=== PATIENT | female | born 1990 | race Caucasian/White ===

== ENCOUNTER 2016-11-02 06:17 | Emergency (ER) | payer MEDICAID, OTHER ==
[2016-11-02 06:25] VITALS: RESP 18
[2016-11-02] MEDS ORDERED: ONDANSETRON 4 MG/2 ML VIAL IVP STA (06:46)
[2016-11-02] MEDS ORDERED: FAMOTIDINE 20 MG/2 ML VIAL IV STA (06:46)
[2016-11-02] MEDS ORDERED: DICYCLOMINE 10 MG/ML 2 ML AMP IM STA (06:46)
[2016-11-02] MEDS ORDERED: SODIUM CHLORIDE 0.9% 1,000 ML IV STA (06:46)
--- NOTE | 2016-11-02 06:49 | ED ---
General Adult HPI - General Source: patient, RN notes reviewed Mode of arrival: ambulatory Limitations: no limitations <Marv Jenkins - Last Filed: 11/02/16 06:47> <Sarath Raygoza - Last Filed: 11/02/16 08:27> - General Chief complaint: Nausea/Vomiting/Diarrhea Stated complaint: NVD - History of Present Illness Initial comments: Patient is a pleasant 26-year-old female presenting to the emergency Department with complaints of nausea and vomiting and diarrhea. Onset of symptoms was . Seemed to have improving symptoms yesterday and then worsen again throughout the night. Patient has nausea. Patient has vomited multiple times. Patient also has had some diarrhea. Patient has some discomfort in the mid abdomen. No fever. Patient has other family members with similar symptoms. ( Marv Jenkins) - Related Data Previous Rx's Medication Instructions Recorded Ondansetron [Zofran] 4 mg PO Q8HR PRN #30 tab 11/02/16 Allergies Allergy/AdvReac Type Severity Reaction Status Date / Time No Known Allergies Allergy Verified 11/02/16 06:25 Review of Systems ROS Other: All systems not noted in ROS Statement are negative. Constitutional: Denies: fever, chills Eyes: Denies: eye pain ENT: Denies: ear pain Respiratory: Denies: cough Cardiovascular: Denies: chest pain Endocrine: Denies: fatigue Gastrointestinal: Reports: abdominal pain, nausea, vomiting, diarrhea Genitourinary: Denies: dysuria Musculoskeletal: Denies: back pain Skin: Denies: rash Neurological: Denies: weakness <Marv Jenkins - Last Filed: 11/02/16 06:47> ROS Other: All systems not noted in ROS Statement are negative. <Sarath Raygoza - Last Filed: 11/02/16 08:27> ROS Statement: Those systems with pertinent positive or pertinent negative responses have been documented in the HPI. Past Medical History Past Medical History: No Reported History History of Any Multi-Drug Resistant Organisms: None Reported Past Surgical History: Tubal Ligation Additional Past Surgical History / Comment(s): Patient had a D&C for a miscarriage. Past Anesthesia/Blood Transfusion Reactions: No Reported Reaction Past Psychological History: No Psychological Hx Reported Smoking Status: Former smoker Past Alcohol Use History: None Reported Past Drug Use History: None Reported - Past Family History Father History Unknown: Yes Family Medical History: No Reported History <Marv Jenkins - Last Filed: 11/02/16 06:47> General Exam Limitations: no limitations General appearance: alert, in no apparent distress Head exam: Present: atraumatic Eye exam: Present: normal appearance, PERRL ENT exam: Present: normal oropharynx Neck exam: Present: normal inspection Respiratory exam: Present: normal lung sounds bilaterally Cardiovascular Exam: Present: regular rate, normal rhythm GI/Abdominal exam: Present: soft, tenderness (Mild epigastric tenderness to palpation). Absent: distended Extremities exam: Present: normal inspection. Absent: pedal edema, calf tenderness Neurological exam: Present: alert Psychiatric exam: Present: normal affect, normal mood Skin exam: Absent: rash <Marv Jenkins Last Filed: 11/02/16 06:47> General appearance: alert, in no apparent distress Head exam: Present: atraumatic, normocephalic, normal inspection Eye exam: Present: normal appearance, PERRL, EOMI. Absent: scleral icterus, conjunctival injection, periorbital swelling ENT exam: Present: normal exam, mucous membranes moist Neck exam: Present: normal inspection. Absent: tenderness, meningismus, lymphadenopathy Respiratory exam: Present: normal lung sounds bilaterally. Absent: respiratory distress, wheezes, rales, rhonchi, stridor Cardiovascular Exam: Present: regular rate, normal rhythm, normal heart sounds. Absent: systolic murmur, diastolic murmur, rubs, gallop, clicks GI/Abdominal exam: Present: soft, normal bowel sounds. Absent: distended, tenderness, guarding, rebound, rigid Extremities exam: Present: normal inspection, full ROM, normal capillary refill. Absent: tenderness, pedal edema, joint swelling, calf tenderness Back exam: Present: normal inspection Neurological exam: Present: alert, oriented X3, CN II-XII intact Psychiatric exam: Present: normal affect, normal mood Skin exam: Present: warm, dry, intact, normal color. Absent: rash <Sarath Raygoza - Last Filed: 11/02/16 08:27> Course <Marv Jenkins - Last Filed: 11/02/16 06:47> <Sarath Raygoza - Last Filed: 11/02/16 08:27> Vital Signs 11/02/16 11/02/16 06:23 08:06 Temperature 96.9 F L Pulse Rate 83 80 Respiratory 18 18 Rate Blood Pressure 142/85 119/78 O2 Sat by Pulse 96 99 Oximetry - Reevaluation(s) Reevaluation #1: 11/02/16 08:26 Patient is feeling better at this time, denies nausea and vomiting while in emergency room, no diarrheal episodes while in emergency room, denies recent antibiotic use, no fever. (Sarath Raygoza) Medical Decision Making <Marv Jenkins - Last Filed: 11/02/16 06:47> - Lab Data Result diagrams: 11/02/16 07:00 11/02/16 07:00 - Radiology Data Radiology results: report reviewed (X-ray KUB is negative), image reviewed <Sarath Raygoza - Last Filed: 11/02/16 08:27> - Medical Decision Making 18 female year for nausea vomiting diarrhea, gastroenteritis, patient will be treated appropriately with IV fluids in the emergency room, is feeling better, patient will be given antiemetics for home okay for discharge (Sarath Raygoza) - Lab Data Lab Results 11/02/16 11/02/16 Range/Units 07:00 07:00 WBC 10.6 (3.8-10.6) k/uL RBC 5.07 (3.80-5.40) m/uL Hgb 14.7 (11.4-16.0) gm/dL Hct 43.6 (34.0-46.0) % MCV 86.0 (80.0-100.0) fL MCH 29.0 (25.0-35.0) pg MCHC 33.7 (31.0-37.0) g/dL RDW 12.7 (11.5-15.5) % Plt Count 229 (150-450) k/uL Neutrophils % 81 % Lymphocytes % 13 % Monocytes % 4 % Eosinophils % 1 % Basophils % 0 % Neutrophils # 8.6 H (1.3-7.7) k/uL Lymphocytes # 1.3 (1.0-4.8) k/uL Monocytes # 0.4 (0-1.0) k/uL Eosinophils # 0.1 (0-0.7) k/uL Basophils # 0.0 (0-0.2) k/uL Sodium 142 (137-145) mmol/L Potassium 3.6 (3.5-5.1) mmol/L Chloride 105 (98-107) mmol/L Carbon Dioxide 21 L (22-30) mmol/L Anion Gap 16 mmol/L BUN 13 (7-17) mg/dL Creatinine 0.52 (0.52-1.04) mg/dL Est GFR (MDRD) Af Amer >60 (>60 ml/min/1.73 sqM) Est GFR (MDRD) Non-Af >60 (>60 ml/min/1.73 sqM) Glucose 92 (74-99) mg/dL Calcium 9.0 (8.4-10.2) mg/dL Total Bilirubin 1.0 (0.2-1.3) mg/dL AST 17 (14-36) U/L ALT 30 (9-52) U/L Alkaline Phosphatase 59 (38-126) U/L Total Protein 7.3 (6.3-8.2) g/dL Albumin 4.3 (3.5-5.0) g/dL Amylase <30 L (30-110) U/L Lipase 35 (23-300) U/L Disposition <Marv Jenkins - Last Filed: 11/02/16 06:47> <Sarath Raygoza - Last Filed: 11/02/16 08:27> Clinical Impression: Dehydration, Gastroenteritis Disposition: HOME SELF-CARE Condition: Good Instructions: Acute Nausea and Vomiting (ED), Acute Diarrhea (ED) Prescriptions: Ondansetron [Zofran] 4 mg PO Q8HR PRN #30 tab PRN Reason: Nausea Referrals: Shirlene Sam, PAC [Primary Care Provider] - 1-2 days
[2016-11-02 07:24] LABS: Basophils % (A) 0 %; Eosinophils # (A) 0.1 k/uL (0-0.7); Eosinophils % (A) 1 %; HCT 43.6 % (34.0-46.0); HGB 14.7 gm/dL (11.4-16.0); Luc # (Auto) 0.16; Luc % (Auto) 2; Lymphocytes # (A) 1.3 k/uL (1.0-4.8); Lymphocytes % (A) 13 %; MCHC 33.7 g/dL (31.0-37.0); Monocytes # (A) 0.4 k/uL (0-1.0); Monocytes % (A) 4 %; Neutrophils # (A) 8.6 k/uL (1.3-7.7); Neutrophils % (A) 81 %; RBC 5.07 m/uL (3.80-5.40); RDW 12.7 % (11.5-15.5); WBC 10.6 k/uL (3.8-10.6); WBC (Perox) 10.79
[2016-11-02 07:36] LABS: ALT 30 U/L (9-52); AST 17 U/L (14-36); Alkaline Phosphatase 59 U/L (38-126); Amylase <30 U/L (30-110); Anion Gap 16 mmol/L; Blood Urea Nitrogen 13 mg/dL (7-17); Carbon Dioxide 21 mmol/L (22-30); Chloride 105 mmol/L (98-107); Glucose 92 mg/dL (74-99); Non-African American GFR(MDRD) >60 (>60 ml/min/1.73 sqM); Potassium 3.6 mmol/L (3.5-5.1); Sodium 142 mmol/L (137-145); Total Protein 7.3 g/dL (6.3-8.2)
[2016-11-02 08:07] VITALS: BP 119/78; PULSE 80
--- NOTE | 2016-11-02 08:20 | XR ---
Abdomen HISTORY: Nausea and vomiting Frontal view of the abdomen on 2 images There are air-fluid levels without bowel dilation. No pneumoperitoneum. Lung bases are clear. IMPRESSION: Findings suggest enteritis. Follow-up as indicated.
[2016-11-02 08:48] VITALS: TEMP 97.5
== END 2016-11-02 08:58 | disposition home or self-care (01) ==
LOC: EC 06:17
DX: K52.9 Noninfective gastroenteritis and colitis, unspecified (principal); E86.0 Dehydration; Z87.891 Personal history of nicotine dependence
CPT/HCPCS: 36415; 80053; 82150; 83690; 85025; 74000; 99284; 96374; 96375; 96361; 96372; J0500; J2405

== ENCOUNTER → 2021-09-24 | Outpatient (CLI) | payer BC, MEDICAID ==
--- NOTE | 2021-09-24 16:17 | US ---
EXAMINATION TYPE: US pelvic complete DATE OF EXAM: 09/24/2021 COMPARISON: NONE CLINICAL HISTORY: N92.1 Excessive menstruation. Clots TECHNIQUE: Transvaginal (TV) and Transabdominal (TA) . Transabdominal sonographic images of the pel vis were acquired. Transvaginal sonographic images were medically necessary to better assess the fol lowing anatomy: Date of LMP: 09/22/21 EXAM MEASUREMENTS: Uterus: 8.7 x 5.7 x 4.7 cm Endometrial Stripe: 0.4 cm Right Ovary: 2.9 x 2.7 x 2.5 cm Left Ovary: 3.2 x 2.6 x 2.2 cm 1. Uterus: Anteverted with multiple leiomyomas 2. Endometrium: wnl 3. Right Ovary: with multiple follicles 4. Left Ovary: with multiple follicles Spectral, color and waveform doppler imaging shows good arterial and venous flow within the ovaries ; . 5. Bilateral Adnexa: wnl 6. Posterior cul-de-sac: wnl Heterogeneous anteverted uterus. There is 1.6 cm slightly hypoechoic round intramural fibroid posteri sorin and transvaginal investigation. A few tiny nabothian cysts are present. Additional heterogeneous scattered fibroids. Present during real-time scanning per technologist. Both ovaries seen and are symmetric and normal in size. Scattered peripheral follicles bilaterally. N o suspicious adnexal masses. IMPRESSION: Underlying uterine fibroids are felt present. Pelvic MRI study could be performed to bett er evaluate and characterize if desired.
== END | disposition home or self-care (01) ==
LOC: RADUSWWP 15:38
PROVIDERS: ATTEND Family Medicine
DX: D25.1 Intramural leiomyoma of uterus (principal)
CPT/HCPCS: 76830; 76856

== ENCOUNTER → 2022-08-01 | Outpatient (CLI) | payer BC ==
[2022-08-01 15:32] LABS: Follicle Stimulating Hormone 3.7 mIU/mL
== END | disposition home or self-care (01) ==
LOC: LABWHC1 09:38
PROVIDERS: ATTEND Obstetrics & Gynecology Gynecology
DX: D25.9 Leiomyoma of uterus, unspecified (principal)
CPT/HCPCS: 36415; 83001; 84443

== ENCOUNTER 2023-05-25 18:53 | Inpatient (IN) | payer BC, OTHER ==
[2023-05-25 19:04] VITALS: TEMP 97.7
[2023-05-25 19:05] LABS: Glucose,Whole Blood 88 mg/dL (70-110)
[2023-05-25] MEDS ORDERED: SODIUM CHLORIDE 0.9% 1,000 ML IV STA (19:14)
[2023-05-25] MEDS ORDERED: ONDANSETRON 4 MG/2 ML VIAL IVP STA (19:17)
--- NOTE | 2023-05-25 19:23 | ED ---
General Adult HPI - General Chief complaint: Eye Problems Stated complaint: HTN/vision loss Time Seen by Provider: 05/25/23 19:08 Source: patient, RN notes reviewed, old records reviewed Mode of arrival: ambulatory Limitations: altered mental status - History of Present Illness Initial comments: 32-year-old female presenting for evaluation. She was sent from urgent care where she was being evaluated for vision disturbance. She states she's had blurry vision. She does report headache she reported left arm weakness. History is very difficult and the patient is quite repetitive. I did ask on multiple occasions with duration of her symptoms and it seems as though these rate the symptoms have been present for the past one to 2 days. She reports a headache. Multiple episodes of vomiting. She states she has been working a lot. She states that her arm weakness has been present for at least 24 hours. She states the visual disturbance is been present for the past 2 days and she's had intermittent headaches over this time. She reports previous hysterectomy and denies current . - Related Data Home Medications Medication Instructions Recorded Confirmed No Known Home Medications 05/25/23 05/25/23 Allergies Allergy/AdvReac Type Severity Reaction Status Date / Time No Known Allergies Allergy Verified 05/25/23 19:15 Review of Systems ROS Statement: Those systems with pertinent positive or pertinent negative responses have been documented in the HPI. ROS Other: All systems not noted in ROS Statement are negative. Past Medical History Past Medical History: No Reported History History of Any Multi-Drug Resistant Organisms: None Reported Past Surgical History: Tubal Ligation Additional Past Surgical History / Comment(s): Patient had a D&C for a miscarriage. Past Anesthesia/Blood Transfusion Reactions: No Reported Reaction Past Psychological History: No Psychological Hx Reported Past Alcohol Use History: None Reported Past Drug Use History: None Reported - Past Family History Father History Unknown: Yes Family Medical History: No Reported History General Exam Limitations: no limitations General appearance: alert Head exam: Present: atraumatic, normocephalic Eye exam: Present: normal appearance, PERRL. Absent: nystagmus ENT exam: Present: mucous membranes dry Respiratory exam: Present: normal lung sounds bilaterally. Absent: respiratory distress, wheezes Cardiovascular Exam: Present: regular rate, normal rhythm GI/Abdominal exam: Present: soft. Absent: distended Extremities exam: Present: normal inspection, normal capillary refill. Absent: pedal edema, calf tenderness Neurological exam: Present: alert, motor sensory deficit (Left arm drift). Absent: oriented X3 (Patient is repetitive, difficult to redirect) Psychiatric exam: Present: anxious Course Vital Signs 05/25/23 05/25/23 18:58 20:53 Temperature 97.7 F Pulse Rate 80 64 Respiratory 22 16 Rate Blood Pressure 177/110 138/94 O2 Sat by Pulse 100 100 Oximetry Medical Decision Making - Medical Decision Making Was pt. sent in by a medical professional or institution (, PA, PAPER COLORER, urgent care, hospital, or senior living...) When possible be specific @ -No Did you speak to anyone other than the patient for history (EMS, parent, family, police, friend...)? What history was obtained from this source @ -No Did you review nursing and triage notes (agree or disagree)? Why? @ -I reviewed and agree with nursing and triage notes Were old charts reviewed (outside hosp., previous admission, EMS record, old EKG, old radiological studies, urgent care reports/EKG's, senior living records)? Report findings @ -No old charts were reviewed Differential Diagnosis (chest pain, altered mental status, abdominal pain women, abdominal pain men, vaginal bleeding, weakness, fever, dyspnea, syncope, headache, dizziness, GI bleed, back pain, seizure, CVA, palpatations, mental health, musculoskeletal)? @ Differential CVA Ischemic stroke, hemorrhagic stroke, brain tumor, atypical migraine, Wernicke's encephalopathy, seizure, multiple sclerosis, meningitis, encephalitis, hypoglycemia, Guillain-Trinh, electrolytes disturbance, myasthenia gravis.... This is not meant to be an all-inclusive list EKG interpreted by me (3pts min.). @ EKG: Sinus rhythm rate of 84, CT interval 125, QRS duration 98, QTC 423, no ST segment elevation. X-rays interpreted by me (1pt min.). @ Chest x-ray unremarkable CT interpreted by me (1pt min.). @ -CT brain, negative for intracranial hemorrhage or mass effect, CT angiog jessica negative for acute occlusion or stenosis U/S interpreted by me (1pt. min.). @ -None done What testing was considered but not performed or refused? (CT, X-rays, U/S, labs)? Why? @ -None What meds were considered but not given or refused? Why? @ -None Did you discuss the management of the patient with other professionals (professionals i.e. , PA, PAPER COLORER, lab, RT, psych nurse, hospice social worker, road machine operator, teacher, chief green officer, manager rn case)? Give summary @ -Roxana CHRISTIANSON Was smoking cessation discussed for >3mins.? @ -No Was critical care preformed (if so, how long)? @ -No Were there social determinants of health that impacted care today? How? (Carmine elessness, low income, unemployed, alcoholism, drug addiction, transportation, low edu. Level, literacy, decrease access to med. care, halfway, rehab)? @ -No Was there de-escalation of care discussed even if they declined (Discuss DNR or withdrawal of care, Hospice)? DNR status @ -No What co-morbidities impacted this encounter? (DM, HTN, Smoking, COPD, CAD, Cancer, CVA, ARF, Chemo, Hep., AIDS, mental health diagnosis, sleep apnea, morbid obesity)? @ -None Was patient admitted / discharged? Hospital course, mention meds given and route, prescriptions, significant lab abnormalities, going to OR and other pertinent info. @ -[32-year-old female presents for evaluation of confusion, headache, vision changes, left arm weakness. History is limited in this patient she is repetitive in nature. She is initially hypertensive at 177/110. She states her symptoms have been ongoing for the past 2 days. She does have a left arm drift. No facial asymmetry, speech is clear. NIH is 1. Patient has a difficult time providing a clear history but according to her and her symptoms have been going on for the past 2-1/[address] is negative, CT angiography is negative, chest x-ray is clear. She has normal CBC, normal CMP. Her blood pressure improves without antihypertensive medications. She's given IV fluids and Zofran and does have some improvement while in the emergency department and her nausea. She will be admitted for neurology consult. Undiagnosed new problem with uncertain prognosis? @ -No Drug Therapy requiring intensive monitoring for toxicity (Heparin, Nitro, Insulin, Cardizem)? @ -No Were any procedures done? @ -No Diagnosis/symptom? @ Confusion, CVA Acute, or Chronic, or Acute on Chronic? @ -Acute Uncomplicated (without systemic symptoms) or Complicated (systemic symptoms)? @ -default Side effects of treatment? @ -No Exacerbation, Progression, or Severe Exacerbation? @ -No Poses a threat to life or bodily function? How? (Chest pain, [place], VA, pneumonia, PE, COPD, DKA, ARF, appy, cholecystitis, CVA, Diverticulitis, Homicidal, Suicidal, threat to staff... and all critical care pts) @ -[Yes, CVA, confusion - Lab Data Result diagrams: 05/25/23 19:35 05/25/23 19:35 Lab Results 05/25/23 05/25/23 05/25/23 Range/Units 19:03 19:35 19:35 WBC 9.3 (3.8-10.6) k/uL RBC 4.91 (3.80-5.40) m/uL Hgb 14.5 (11.4-16.0) gm/dL Hct 43.9 (34.0-46.0) % MCV 89.4 (80.0-100.0) fL MCH 29.5 (25.0-35.0) pg MCHC 33.1 (31.0-37.0) g/dL RDW 12.5 (11.5-15.5) % Plt Count 229 (150-450) k/uL MPV 9.2 Neutrophils % 56 % Lymphocytes % 37 % Monocytes % 4 % Eosinophils % 1 % Basophils % 1 % Neutrophils # 5.2 (1.3-7.7) k/uL Lymphocytes # 3.5 (1.0-4.8) k/uL Monocytes # 0.4 (0-1.0) k/uL Eosinophils # 0.1 (0-0.7) k/uL Basophils # 0.1 (0-0.2) k/uL PT 10.6 (9.0-12.0) sec INR 1.0 (<1.2) APTT 25.2 (22.0-30.0) sec Sodium (137-145) mmol/L Potassium (3.5-5.1) mmol/L Chloride (98-107) mmol/L Carbon Dioxide (22-30) mmol/L Anion Gap mmol/L BUN (7-17) mg/dL Creatinine (0.52-1.04) mg/dL Est GFR (CKD-EPI)AfAm (>60 ml/min/1.73 sqM) Est GFR (CKD-EPI)NonAf (>60 ml/min/1.73 sqM) Glucose (74-99) mg/dL POC Glucose (mg/dL) 88 (70-110) mg/dL POC Glu Pan Washer ID Mariela Carrion Calcium (8.4-10.2) mg/dL Total Bilirubin (0.2-1.3) mg/dL AST (14-36) U/L ALT (4-34) U/L Alkaline Phosphatase (38-126) U/L Creatine Kinase (30-135) U/L Troponin I (0.000-0.034) ng/mL Total Protein (6.3-8.2) g/dL Albumin (3.5-5.0) g/dL Urine Color Urine Appearance (Clear) Urine pH (5.0-8.0) Ur Specific [place] (1.001-1.035) Urine Protein (Negative) Urine Glucose (UA) (Negative) Urine Ketones (Negative) Urine Blood (Negative) Urine Nitrite (Negative) Urine Bilirubin (Negative) Urine Urobilinogen (<2.0) mg/dL Ur Leukocyte Esterase (Negative) Serum Alcohol mg/dL 05/25/23 05/25/23 05/25/23 Range/Units 19:35 19:35 19:35 WBC (3.8-10.6) k/uL RBC (3.80-5.40) m/uL Hgb (11.4-16.0) gm/dL Hct (34.0-46.0) % MCV (80.0-100.0) fL MCH (25.0-35.0) pg MCHC (31.0-37.0) g/dL RDW (11.5-15.5) % Plt Count (150-450) k/uL MPV Neutrophils % % Lymphocytes % % Monocytes % % Eosinophils % % Basophils % % Neutrophils # (1.3-7.7) k/uL Lymphocytes # (1.0-4.8) k/uL Monocytes # (0-1.0) k/uL Eosinophils # (0-0.7) k/uL Basophils # (0-0.2) k/uL PT (9.0-12.0) sec INR (<1.2) APTT (22.0-30.0) sec Sodium 137 (137-145) mmol/L Potassium 3.6 (3.5-5.1) mmol/L Chloride 103 (98-107) mmol/L Carbon Dioxide 25 (22-30) mmol/L Anion Gap 9 mmol/L BUN 12 (7-17) mg/dL Creatinine 0.54 (0.52-1.04) mg/dL Est GFR (CKD-EPI)AfAm >90 (>60 ml/min/1.73 sqM) Est GFR (CKD-EPI)NonAf >90 (>60 ml/min/1.73 sqM) Glucose 84 (74-99) mg/dL POC Glucose (mg/dL) (70-110) mg/dL POC Glu Pan Washer ID Calcium 9.7 (8.4-10.2) mg/dL Total Bilirubin 0.8 (0.2-1.3) mg/dL AST 24 (14-36) U/L ALT 17 (4-34) U/L Alkaline Phosphatase 76 (38-126) U/L Creatine Kinase 66 (30-135) U/L Troponin I <0.012 (0.000-0.034) ng/mL Total Protein 7.9 (6.3-8.2) g/dL Albumin 4.9 (3.5-5.0) g/dL Urine Color Colorless Urine Appearance Clear (Clear) Urine pH 7.0 (5.0-8.0) Ur Specific [place] 1.003 (1.001-1.035) Urine Protein Negative (Negative) Urine Glucose (UA) Negative (Negative) Urine Ketones Negative (Negative) Urine Blood Negative (Negative) Urine Nitrite Negative (Negative) Urine Bilirubin Negative (Negative) Urine Urobilinogen <2.0 (<2.0) mg/dL Ur Leukocyte Esterase Negative (Negative) Serum Alcohol <10 mg/dL 05/25/23 Range/Units 19:36 WBC (3.8-10.6) k/uL RBC (3.80-5.40) m/uL Hgb (11.4-16.0) gm/dL Hct (34.0-46.0) % MCV (80.0-100.0) fL MCH (25.0-35.0) pg MCHC (31.0-37.0) g/dL RDW (11.5-15.5) % Plt Count (150-450) k/uL MPV Neutrophils % % Lymphocytes % % Monocytes % % Eosinophils % % Basophils % % Neutrophils # (1.3-7.7) k/uL Lymphocytes # (1.0-4.8) k/uL Monocytes # (0-1.0) k/uL Eosinophils # (0-0.7) k/uL Basophils # (0-0.2) k/uL PT (9.0-12.0) sec INR (<1.2) APTT (22.0-30.0) sec Sodium (137-145) mmol/L Potassium (3.5-5.1) mmol/L Chloride (98-107) mmol/L Carbon Dioxide (22-30) mmol/L Anion Gap mmol/L BUN (7-17) mg/dL Creatinine (0.52-1.04) mg/dL Est GFR (CKD-EPI)AfAm (>60 ml/min/1.73 sqM) Est GFR (CKD-EPI)NonAf (>60 ml/min/1.73 sqM) Glucose (74-99) mg/dL POC Glucose (mg/dL) 85 (70-110) mg/dL POC Glu Pan Washer ID Tae Lugo Calcium (8.4-10.2) mg/dL Total Bilirubin (0.2-1.3) mg/dL AST (14-36) U/L ALT (4-34) U/L Alkaline Phosphatase (38-126) U/L Creatine Kinase (30-135) U/L Troponin I (0.000-0.034) ng/mL Total Protein (6.3-8.2) g/dL Albumin (3.5-5.0) g/dL Urine Color Urine Appearance (Clear) Urine pH (5.0-8.0) Ur Specific [place] (1.001-1.035) Urine Protein (Negative) Urine Glucose (UA) (Negative) Urine Ketones (Negative) Urine Blood (Negative) Urine Nitrite (Negative) Urine Bilirubin (Negative) Urine Urobilinogen (<2.0) mg/dL Ur Leukocyte Esterase (Negative) Serum Alcohol mg/dL Disposition Clinical Impression: AMS (altered mental status), CVA (cerebral vascular accident) Disposition: ADMITTED IP TO THIS HOSP Condition: Stable Is patient prescribed a controlled substance at d/c from ED?: No Referrals: Aram Almanzar DO [Primary Care Provider] - 1-2 days Time of Disposition: 21:11
[2023-05-25 19:38] LABS: Glucose,Whole Blood 85 mg/dL (70-110)
[2023-05-25 20:09] LABS: Basophils # (A) 0.1 k/uL (0-0.2); Basophils % (A) 1 %; Eosinophils # (A) 0.1 k/uL (0-0.7); Eosinophils % (A) 1 %; HCT 43.9 % (34.0-46.0); HGB 14.5 gm/dL (11.4-16.0); Lymphocytes # (A) 3.5 k/uL (1.0-4.8); Lymphocytes % (A) 37 %; MCH 29.5 pg (25.0-35.0); MCHC 33.1 g/dL (31.0-37.0); MCV 89.4 fL (80.0-100.0); Mean Platelet Volume 9.2; Monocytes # (A) 0.4 k/uL (0-1.0); Monocytes % (A) 4 %; Neutrophils # (A) 5.2 k/uL (1.3-7.7); Neutrophils % (A) 56 %; Platelet Count 229 k/uL (150-450); RBC 4.91 m/uL (3.80-5.40); RDW 12.5 % (11.5-15.5); WBC 9.3 k/uL (3.8-10.6)
--- NOTE | 2023-05-25 20:21 | CT ---
EXAMINATION TYPE: CT brain wo con DATE OF EXAM: 05/25/2023 COMPARISON: None HISTORY: 32-year-old female Neuro deficit, acute, stroke suspected TECHNIQUE: Examination was done in axial plane without intravenous contrast. Coronal and sagittal r econstructions performed. CT DLP: 1116.6 mGycm Automated exposure control for dose reduction was used. FINDINGS: There is no evidence of acute intracranial hemorrhage, acute ischemic changes, mass, mass-effect, or extra-axial fluid collection. There is no effacement of cerebral sulci or basal subarachnoid cister ns. There is no hydrocephalus. There is no midline shift. Steiner-white matter distinction is preserv ed. Partially empty sella incidentally noted. Paranasal sinuses and mastoid air cells are well pneumatized. Orbits and globes are intact. IMPRESSION: No acute intracranial abnormality seen.
[2023-05-25 20:27] LABS: ALT 17 U/L (4-34); AST 24 U/L (14-36); African American GFR (CKD) >90 (>60 ml/min/1.73 sqM); Albumin 4.9 g/dL (3.5-5.0); Alcohol <10 mg/dL; Alkaline Phosphatase 76 U/L (38-126); Anion Gap 9 mmol/L; Blood Urea Nitrogen 12 mg/dL (7-17); Calcium 9.7 mg/dL (8.4-10.2); Carbon Dioxide 25 mmol/L (22-30); Chloride 103 mmol/L (98-107); Creatine Kinase 66 U/L (30-135); Glucose 84 mg/dL (74-99); Non-African American GFR(CKD) >90 (>60 ml/min/1.73 sqM); Potassium 3.6 mmol/L (3.5-5.1); Sodium 137 mmol/L (137-145); Total Bilirubin 0.8 mg/dL (0.2-1.3); Total Protein 7.9 g/dL (6.3-8.2)
--- NOTE | 2023-05-25 20:28 | CT ---
EXAMINATION TYPE: CT angio head neck DATE OF EXAM: 05/25/2023 COMPARISON: CT brain same date HISTORY: 32-year-old female Neuro deficit, acute, stroke suspected TECHNIQUE: Contiguous axial scanning of the head and neck performed with IV Contrast, patient injecte d with 65ml mL of Isovue 370. Coronal/sagittal MIP reconstructions performed. 3-D reconstructions gen erated on a dedicated workstation. CT DLP: 391.5 mGycm Automated exposure control for dose reduction was used. FINDINGS: Neck: Conventional branching anatomy. The left vertebral artery is dominant. Both vertebral arteries are otherwise patent throughout their course. Thyroid gland shows an 8 mm nodule in the right lobe. The right common and right internal carotid arteries are widely patent by NASCET criteria. The left common and left internal carotid arteries are widely patent by NASCET criteria. Head: Again, dominant left vertebral artery. The right vertebral artery appears to terminate as a PICA bran ch. The basilar artery is patent. A small posterior communicating artery on the left is noted. Otherwise, the posterior circulation is patent. Dural venous sinuses are patent. The bilateral internal carotid arteries are patent. Suspect a small 2 mm infundibulum at the origin of the left posterior communicating artery, thin cut axial image 169. Otherwise, anterior circulation is patent. IMPRESSION: 1. NECK: DOMINANT LEFT VERTEBRAL ARTERY. OTHERWISE, WIDELY PATENT VERTEBRAL AND CAROTID ARTERIES IN T HE NECK. 2. HEAD: ANATOMIC VARIATION WITH THE NONDOMINANT RIGHT VERTEBRAL ARTERY TERMINATING A PICA BRANCH. NO LARGE VESSEL INTRACRANIAL ARTERIAL OCCLUSION OR SIGNIFICANT STENOSIS. SUSPECT A TINY 2 MM INFUNDI BULUM AT THE ORIGIN OF THE LEFT POSTERIOR COMMUNICATING ARTERY RATHER THAN A TINY ANEURYSM. CONSIDER A 12 MONTH FOLLOW-UP [facility] [place] TO REASSESS.
--- NOTE | 2023-05-25 20:30 | XR ---
EXAMINATION TYPE: XR chest 2V DATE OF EXAM: 05/25/2023 COMPARISON: None HISTORY: 32-year-old female confusion, altered mental status, blurred vision TECHNIQUE: PA and lateral views FINDINGS: The cardiomediastinal silhouette, aorta, and pulmonary vasculature are within normal limits. Lungs an d pleural spaces are clear. IMPRESSION: No acute cardiopulmonary process.
[2023-05-25] MEDS ORDERED: ASPIRIN 325 MG TAB PO STA (20:52)
[2023-05-25 21:00] LABS: Appearance,Urine Clear (Clear); Bilirubin,Urine Negative (Negative); Blood,Urine Negative (Negative); Color,Urine Colorless; Glucose,Urine (UA) Negative (Negative); Ketones,Urine Negative (Negative); Leukocyte Esterase,Urine Negative (Negative); Nitrite,Urine Negative (Negative); Protein,Urine Negative (Negative); Specific Gravity,Urine 1.003 (1.001-1.035); Urobilinogen,Urine <2.0 mg/dL (<2.0)
[2023-05-25 21:05] LABS: Partial Thromboplastin Time 25.2 sec (22.0-30.0); Prothrombin Time 10.6 sec (9.0-12.0)
[2023-05-25 21:10] LABS: Amphetamine Screen,Urine Not Detected (NotDetected); Barbiturate Screen,Urine Not Detected (NotDetected); Benzodiazepines Screen,Urine Not Detected (NotDetected); Cocaine Screen,Urine Not Detected (NotDetected); Methadone Screen, Urine Not Detected (NotDetected); Opiate Screen,Urine Not Detected (NotDetected); Oxycodone Screen, Urine Not Detected (NotDetected); Phencyclidine Screen,Urine Not Detected (NotDetected); Tricyclic Antidepressant,Urine Not Detected (NotDetected); Urn Cannabinoid Scrn Not Detected (NotDetected)
[2023-05-25] MEDS: SODIUM CHLORIDE 0.9% 1,000 ML IV SCH (21:59)
[2023-05-26] MEDS ORDERED: ASPIRIN 325 MG TAB PO SCH (09:00)
[2023-05-26 09:27] LABS: Chol/HDL Ratio 4.35 Ratio; LDL Cholesterol,Calculated 126.6 mg/dL (0.0-131.0)
[2023-05-26] MEDS: SODIUM CHLORIDE 0.9% 1,000 ML IV SCH ×2 (09:57→20:37)
--- NOTE | 2023-05-26 12:14 | P.HPIM ---
History of Present Illness Patient is a 82-year-old female came in the with a transient loss of vision, P she also had a transient left-sided weakness and was bit confused as well she had episodes of nausea vomiting and headache. Patient denied any history of migraine. Patient denied any fever chills. Patient denied any fever patient had hysterectomy in the past. Patient says she is hypotensive but not taking any other blood blood pressure medication her blood pressure is within normal limits. Patient doesn't have any blurry vision or arm weakness at this time. Patient denied any history of glaucoma REVIEW OF SYSTEMS: CONSTITUTIONAL: No fever, no malaise, no fatigue. HEENT: No recent visual problems or hearing problems. Denied any sore throat. CARDIOVASCULAR: No chest pain, orthopnea, PND, no palpitations, no syncope. PULMONARY: No shortness of breath, no cough, no hemoptysis. GASTROINTESTINAL: No diarrhea, no nausea, no vomiting, no abdominal pain. NEUROLOGICAL: No headaches, no weakness, no numbness. HEMATOLOGICAL: Denies any bleeding or petechiae. GENITOURINARY: Denies any burning micturition, frequency, or urgency. MUSCULOSKELETAL/RHEUMATOLOGICAL: Denies any joint pain, swelling, or any muscle pain. ENDOCRINE: Denies any polyuria or polydipsia. The rest of the 14-point review of systems is negative. PHYSICAL EXAMINATION: GENERAL: The patient is alert and oriented x3, not in any acute distress. Well developed, well nourished. HEENT: Pupils are round and equally reacting to light. EOMI. No scleral icterus. No conjunctival pallor. Normocephalic, atraumatic. No pharyngeal erythema. No thyromegaly. CARDIOVASCULAR: S1 and S2 present. No murmurs, rubs, or gallops. PULMONARY: Chest is clear to auscultation, no wheezing or crackles. ABDOMEN: Soft, nontender, nondistended, normoactive bowel sounds. No palpable organomegaly. MUSCULOSKELETAL: No joint swelling or deformity. EXTREMITIES: No cyanosis, clubbing, or pedal edema. NEUROLOGICAL: Gross neurological examination did not reveal any focal deficits. SKIN: No rashes. Assessment and plan -Blurry vision, weakness in the left arm: All the workup is so far negative including CT CT angios the head and neck, patient the will undergo MRI and MRA to rule out any sinus venous thrombosis. Patient most probably has completed migraine neurology is recommending Depakote 50 twice a day and after the workup patient will be probably discharged -Nicotine use: Counseling was provided -Anxiety disorder Patient most probably will be discharged later today Past Medical History Past Medical History: No Reported History History of Any Multi-Drug Resistant Organisms: None Reported Past Surgical History: Tubal Ligation Additional Past Surgical History / Comment(s): Patient had a D&C for a miscarriage. Past Anesthesia/Blood Transfusion Reactions: No Reported Reaction Past Psychological History: No Psychological Hx Reported Past Alcohol Use History: None Reported Past Drug Use History: None Reported - Past Family History Father History Unknown: Yes Family Medical History: No Reported History Medications and Allergies Home Medications Medication Instructions Recorded Confirmed Type Topiramate [Topamax] 50 mg PO BID #60 tablet 05/26/23 Rx Allergies Allergy/AdvReac Type Severity Reaction Status Date / Time No Known Allergies Allergy Verified 05/25/23 19:15 Physical Exam Vitals: Vital Signs Temp Pulse Pulse Resp BP BP Pulse Ox 05/26/23 10:05 70 22 128/96 97 05/26/23 06:38 58 L 16 104/71 96 05/26/23 02:28 62 16 112/78 96 05/26/23 01:35 70 16 140/116 97 05/26/23 00:23 65 148/106 97 05/25/23 22:27 66 16 149/117 98 05/25/23 20:53 64 16 138/94 100 05/25/23 19:10 75 16 155/96 100 05/25/23 18:58 97.7 F 80 22 177/110 100 Intake and Output 05/25/23 05/26/23 05/26/23 22:59 06:59 14:59 Other: Weight 55.338 kg Results CBC & Chem 7: 05/25/23 19:35 05/25/23 19:35
[2023-05-26] MEDS ORDERED: BUTALB/APAP/CAFF 50-325-40MG TAB PO STA (12:22)
--- NOTE | 2023-05-26 12:22 | P.CNNES ---
History of Present Illness Consult date: 05/26/23 Requesting physician: Paras Solomon Reason for Consult: ams/cva History of Present Illness: This is a 32-year-old woman who presented emergency department for visual disturbance. Patient is accompanied with her . Over the patient since Thursday she has been feeling off and that she was told that she was spacey since this past Thursday. Then the next day she's noticed that she's having headache mostly in the frontal anterior temporal region and she feels that the throbbing pulsating headache. She rates the headache 7/10. And she feels the headaches waxes and wanes but denies any complete resolution. She denies any radiation. She's been having visual disturbance since Thursday or Thursday as well. She feels her eyes are blurry and been having these black white sparkles over both eyes. She feels that'll speckles are moving across her eyes. As well as recently she's been having vomiting episodes. Denies any focal weakness or numbness or any difficulty swallowing or getting her words out. She denies any history of seizures. Denies any history of migraines at. Denies any history of stroke. That she has history of hysterectomy and she is not on any control pills. She denies any illicit drug use. She denies any head trauma recently. Her mother has history of migraines. Some other workup during his hospital visit consisted of: So far her CBC with differential, chemistry panel, urinalysis, urine drug screen all have been coming back negative. Even that she's afebrile but has been having some elevated blood pressure initially in the 177/110. CT of the head is reported as no acute intracranial abnormality seen. CTA neck was reported as dominant left vertebral artery. Otherwise widely patent vertebral and carotid arteries in the neck. CTA head reported as atomic variation with the nondominant right vertebral artery at termination as a PICA branch. No large vessel intracranial arterial occlusion or significant stenosis. suspected a tiny 2 mm infundibulum at the or igin of the left posterior communicating artery rather than a tiny aneurysm. Consider twelve-month follow-up MRA ruby of [place] to reassess. Review of Systems 10 point system was reviewed and positive and negative as per HPI. Past Medical History Past Medical History: No Reported History History of Any Multi-Drug Resistant Organisms: None Reported Past Surgical History: Tubal Ligation Additional Past Surgical History / Comment(s): Patient had a D&C for a miscarriage. Past Anesthesia/Blood Transfusion Reactions: No Reported Reaction Past Psychological History: No Psychological Hx Reported Past Alcohol Use History: None Reported Past Drug Use History: None Reported - Past Family History Father History Unknown: Yes Family Medical History: No Reported History Medications and Allergies Home Medications Medication Instructions Recorded Confirmed Type Topiramate [Topamax] 50 mg PO BID #60 tablet 05/26/23 Rx Allergies Allergy/AdvReac Type Severity Reaction Status Date / Time No Known Allergies Allergy Verified 05/25/23 19:15 Physical Examination - Vital Signs Vital Signs: Vital Signs Temp Pulse Pulse Resp BP BP Pulse Ox 05/26/23 10:05 70 22 128/96 97 05/26/23 06:38 58 L 16 104/71 96 05/26/23 02:28 62 16 112/78 96 05/26/23 01:35 70 16 140/116 97 05/26/23 00:23 65 148/106 97 05/25/23 22:27 66 16 149/117 98 05/25/23 20:53 64 16 138/94 100 05/25/23 19:10 75 16 155/96 100 05/25/23 18:58 97.7 F 80 22 177/110 100 Intake and Output 05/25/23 05/26/23 05/26/23 22:59 06:59 14:59 Other: Weight 55.338 kg GENERAL: The patient is lying in bed and is not in acute distress. NEUROLOGICAL: Higher mental function: The patient is awake, alert, oriented to self, place. For time she initially did not know and looked at her then within few seconds correctly stated it was May and correctly answer current year. She correctly answered capital [facility] and [place] Patient is following simple commands. No aphasia and no neglect. Cranial nerves: The pupils are round, equal and reactive to light and accommodation. Visual cunningham are full to confrontation throughout. Extraocular movement is intact no nystagmus is noted. Facial sensation is normal to touch throughout. The facial strength is normal throughout. Hearing is normal bila terally to hand rub. Tongue is midline and moved [id number] without any difficulty. No dysarthria is noted. Shoulder shrug is normal bilaterally. Motor: The strength is 5 over 5 throughout. Normal tone and bulk. Cerebellum: Normal finger to nose heel to johnson bilaterally. Sensation: Sensation is normal to touch throughout. Reflexes (right/left): 2+ Plantars are downgoing bilaterally. Results - Laboratory Findings CBC and BMP: 05/25/23 19:35 05/25/23 19:35 Assessment and Plan Assessment: This is a 32-year-old woman who presented emergency department because of he adache, visual disturbance, vomiting. Workup so far has been negative. Probable patient has complicated migraine. Rule out any venous thrombosis History of Hysterectomy Family history of Migraine (mother) Plan: I ordered MRI of the brain with and without and MRV head I started the patient on Topamax 50 mg twice a day and notified her side-effects of medication. I ordered TSH. I ordered a routine EEG since the ED felt she was confused to rule out any underlying seizure and discharged We'll defer the rest of the medical management to primary team The plan is discussed with patient, her who is at bedside and primary attending. Thank you for consultation. Time with Patient: Greater than 30
[2023-05-26] MEDS: TOPIRAMATE 25 MG TAB PO SCH ×2 (13:15→20:36)
[2023-05-26 13:17] VITALS: RESP 18
[2023-05-26] MEDS ORDERED: ONDANSETRON 4 MG/2 ML VIAL IVP PRN (15:31)
[2023-05-26 19:49] VITALS: BP 124/103; PULSE 72
--- NOTE | 2023-05-27 01:54 | EEG ---
ELECTROENCEPHALOGRAM REPORT CLINICAL HISTORY: This a 32-year-old woman with altered mental status. The video EEG is obtained to evaluate for seizure epileptiform activity. RELEVANT MEDICATIONS: The patient is not on any antiepileptic drugs. EEG TYPE: A routine 21-channel EEG using the 10/20 electrode placement system. DESCRIPTION: Wakefulness is only obtained. During awake state, posterior-dominant rhythm consists of [id number] voltage of 10-11 hertz. There was no physiological sleep architecture. There is no focal slowing. There is significant myogenic artifact over the right frontal as well as left occipital lead. Interictal and ictal is none. ACTIVATION PROCEDURE: Photic stimulation did not evoke a posterior driving response. There is no abnormality during the photic stimulation. Hyperventilation is not performed. CLINICAL INTERPRETATION: This is a normal routine EEG. There is no focal slowing, epileptiform discharge, or seizure on the EEG. A normal routine EEG does not rule out underlying epilepsy. Clinical correlation is recommended. NOVA / WM: [id number] /
== END 2023-05-26 23:05 | disposition left against medical advice (07) | DRG 103 ==
LOC: EC 18:53 → 3SCARD 21:08
PROVIDERS: ADMIT Internal Medicine; ATTEND Internal Medicine
PROC: 4A10X4Z Monitoring of Central Nervous Electrical Activity, External Approach (ICD-10-PCS; principal; 2023-05-26)
DX: G43.109 Migraine with aura, not intractable, without status migrainosus (principal); H53.8 Other visual disturbances; Z53.29 Procedure and treatment not carried out because of patient's decision for other reasons; R53.1 Weakness; F41.9 Anxiety disorder, unspecified; Z71.6 Tobacco abuse counseling; Z90.710 Acquired absence of both cervix and uterus; Z79.899 Other long term (current) drug therapy; Z98.51 Tubal ligation status
CPT/HCPCS: 36415; 70450; 70496; 70498; 71046; 80053; 80061; 80306; 80320; 81003; 82550; 84443; 84484; 85025; 85610; 85730; 93005; 95816

== ENCOUNTER 2023-05-28 19:29 | Inpatient (IN) | payer BC, OTHER ==
[2023-05-28] MEDS ORDERED: SODIUM CHLORIDE 0.9% 1,000 ML IV ONE (20:01)
[2023-05-28] MEDS ORDERED: LORazepam 2 MG/ML INJ IV STA (20:01)
--- NOTE | 2023-05-28 20:07 | ED ---
General Adult HPI - General Chief complaint: Neuro Symptoms/Deficit Stated complaint: Stroke-like symptoms Time Seen by Provider: 05/28/23 19:38 Source: family, RN notes reviewed, old records reviewed Mode of arrival: ambulatory Limitations: no limitations - History of Present Illness Initial comments: 32 yo female presenting for reevaluation confusion, altered mental status per patient was seen 4 days prior with similar complaint she receives CT, CT angiography, laboratory testing, EEG and neurology consultation. By review the medical record it appears she was discharged with request for outpatient MRI. She has not received imaging. She is unable to significantly contribute to the history and is not certain why she is in the emergency department. No suspected drug ingestion. No trauma. History is obtained from the patient's who is at bedside. - Related Data Home Medications Medication Instructions Recorded Confirmed Ondansetron [Zofran] 4 mg PO BID PRN 05/28/23 05/28/23 Topiramate [Topamax] 50 mg PO DIRECTED 05/28/23 05/28/23 hydrOXYzine HCL [Atarax] 25 mg PO TID PRN 05/28/23 05/28/23 Allergies Allergy/AdvReac Type Severity Reaction Status Date / Time No Known Allergies Allergy Verified 05/28/23 20:11 Review of Systems ROS Statement: Those systems with pertinent positive or pertinent negative responses have been documented in the HPI. ROS Other: All systems not noted in ROS Statement are negative. Past Medical History Past Medical History: No Reported History History of Any Multi-Drug Resistant Organisms: None Reported Past Surgical History: Tubal Ligation Additional Past Surgical History / Comment(s): Patient had a D&C for a miscarriage. Past Anesthesia/Blood Transfusion Reactions: No Reported Reaction Past Psychological History: No Psychological Hx Reported Smoking Status: Current every day smoker Past Alcohol Use History: None Reported Past Drug Use History: None Reported - Past Family History Father History Unknown: Yes Family Medical History: No Reported History General Exam - General Exam Comments Initial Comments: Patient will not comply with full physical exam Limitations: no limitations General appearance: alert Head exam: Present: atraumatic, normocephalic Eye exam: Absent: nystagmus, periorbital swelling, periorbital tenderness Respiratory exam: Absent: respiratory distress GI/Abdominal exam: Absent: distended Neurological exam: Present: alert, normal gait. Absent: oriented X3 Psychiatric exam: Present: anxious Skin exam: Present: warm, dry, intact. Absent: cyanosis, diaphoretic Course Vital Signs 05/28/23 19:30 Temperature 98.7 F Pulse Rate 96 Respiratory 18 Rate Blood Pressure 151/111 O2 Sat by Pulse 98 Oximetry - Reevaluation(s) Reevaluation #1: 05/28/23 20:56 Patient has been petitioned for mental health evaluation. Medical Decision Making - Medical Decision Making Was pt. sent in by a medical professional or institution (, PA, DOG CATCHER, urgent care, hospital, or detention...) When possible be specific @ -No Did you speak to anyone other than the patient for history (EMS, parent, family, police, friend...)? What history was obtained from this source @ -No Did you review nursing and triage notes (agree or disagree)? Why? @ -I reviewed and agree with nursing and triage notes Were old charts reviewed (outside hosp., previous admission, EMS record, old EKG, old radiological studies, urgent care reports/EKG's, detention records)? Report findings @ -Review previous imaging including CT and CT angiography Differential Diagnosis (chest pain, altered mental status, abdominal pain women, abdominal pain men, vaginal bleeding, weakness, fever, dyspnea, syncope, headac he, dizziness, GI bleed, back pain, seizure, CVA, palpatations, mental health, musculoskeletal)? @ -[Differential Altered Mental Status: Hypoglycemia, DKA, hypercapnia, ETOH, overdose, CO poisoning, trauma, myxedema coma, HTN encephalopathy, infection, encephalitis, psychosis, intercranial hemorrhage, hepatic encephalopathy, meningitis, CVA, this is not meant to be an all-inclusive list EKG interpreted by me (3pts min.). @EKG: Sinus rhythm rate of 83, AK interval 124, QRS duration 88, QTC [address] segment elevation. X-rays interpreted by me (1pt min.). @ -None done CT interpreted by me (1pt min.). @ -None done U/S interpreted by me (1pt. min.). @ -None done What testing was considered but not performed or refused? (CT, X-rays, U/S, labs)? Why? @ -None What meds were considered but not given or refused? Why? @ -None Did you discuss the management of the patient with other professionals (professionals i.e. , PA, DOG CATCHER, lab, RT, psych nurse, high school social studies tutor, police captain, teacher, special technical operations officer, case maker)? Give summary @ -[Dr. Kinney Was smoking cessation discussed for >3mins.? @ -No Was critical care preformed (if so, how long)? @ -No Were there social determinants of health that impacted care today? How? ( Homelessness, low income, unemployed, alcoholism, drug addiction, transportation, low edu. Level, literacy, decrease access to med. care, residential, rehab)? @ -No Was there de-escalation of care discussed even if they declined (Discuss DNR or withdrawal of care, Hospice)? DNR status @ -No What co-morbidities impacted this encounter? (DM, HTN, Smoking, COPD, CAD, Cancer, CVA, ARF, Chemo, Hep., AIDS, mental health diagnosis, sleep apnea, morbid obesity)? @ -None Was patient admitted / discharged? Hospital course, mention meds given and route, prescriptions, significant lab abnormalities, going to OR and other pertinent info. @ -Patient will be admitted with both neurology and psychiatry on consult. She has been petitioned for psychiatric evaluation. Laboratory testing in the emergency Department is unremarkable, currently awaiting urinalysis and urine drug screen. Undiagnosed new problem with uncertain prognosis? @ -No Drug Therapy requiring intensive monitoring for toxicity (Heparin, Nitro, Insulin, Cardizem)? @ -No Were any procedures done? @ -No Diagnosis/symptom? @ -[Altered mental status, Acute, or Chronic, or Acute on Chronic? @ -[Acute Uncomplicated (without systemic symptoms) or Complicated (systemic symptoms)? @ -[Complicated Side effects of treatment? @ -No Exacerbation, Progression, or Severe Exacerbation? @ -No Poses a threat to life or bodily function? How? (Chest pain, [place], NM, pneumonia, PE, COPD, DKA, ARF, appy, cholecystitis, CVA, Diverticulitis, Homicidal, Suicidal, threat to staff... and all critical care pts) @ -[Moderate risk - Lab Data Result diagrams: 05/28/23 20:16 05/28/23 20:16 Lab Results 05/28/23 05/28/23 05/28/23 Range/Units 20:16 20:16 20:16 WBC 11.4 H (3.8-10.6) k/uL RBC 4.87 (3.80-5.40) m/uL Hgb 14.6 (11.4-16.0) gm/dL Hct 43.7 (34.0-46.0) % MCV 89.6 (80.0-100.0) fL MCH 29.9 (25.0-35.0) pg MCHC 33.4 (31.0-37.0) g/dL RDW 12.7 (11.5-15.5) % Plt Count 244 (150-450) k/uL MPV 8.7 Neutrophils % 73 % Lymphocytes % 20 % Monocytes % 5 % Eosinophils % 1 % Basophils % 0 % Neutrophils # 8.3 H (1.3-7.7) k/uL Lymphocytes # 2.3 (1.0-4.8) k/uL Monocytes # 0.5 (0-1.0) k/uL Eosinophils # 0.1 (0-0.7) k/uL Basophils # 0.0 (0-0.2) k/uL PT 10.5 (9.0-12.0) sec INR 1.0 (<1.2) APTT 24.5 (22.0-30.0) sec Sodium 139 (137-145) mmol/L Potassium 3.9 (3.5-5.1) mmol/L Chloride 105 (98-107) mmol/L Carbon Dioxide 22 (22-30) mmol/L Anion Gap 12 mmol/L BUN 8 (7-17) mg/dL Creatinine 0.49 L (0.52-1.04) mg/dL Est GFR (CKD-EPI)AfAm >90 (>60 ml/min/1.73 sqM) Est GFR (CKD-EPI)NonAf >90 (>60 ml/min/1.73 sqM) Glucose 114 H (74-99) mg/dL Calcium 9.9 (8.4-10.2) mg/dL Magnesium 1.8 (1.6-2.3) mg/dL Total Bilirubin 0.5 (0.2-1.3) mg/dL AST 19 (14-36) U/L ALT 16 (4-34) U/L Alkaline Phosphatase 74 (38-126) U/L Total Protein 7.9 (6.3-8.2) g/dL Albumin 4.8 (3.5-5.0) g/dL Serum Alcohol <10 mg/dL Disposition Clinical Impression: AMS (altered mental status) Disposition: ADMITTED IP TO THIS HOSP Condition: Stable Is patient prescribed a controlled substance at d/c from ED?: No Referrals: Tessy Ta NPC [Family Provider] - 1-2 days Time of Disposition: 21:53
[2023-05-28 20:26] LABS: Basophils % (A) 0 %; Eosinophils # (A) 0.1 k/uL (0-0.7); Eosinophils % (A) 1 %; HCT 43.7 % (34.0-46.0); HGB 14.6 gm/dL (11.4-16.0); Lymphocytes # (A) 2.3 k/uL (1.0-4.8); Lymphocytes % (A) 20 %; MCH 29.9 pg (25.0-35.0); MCHC 33.4 g/dL (31.0-37.0); MCV 89.6 fL (80.0-100.0); Mean Platelet Volume 8.7; Monocytes # (A) 0.5 k/uL (0-1.0); Monocytes % (A) 5 %; Neutrophils # (A) 8.3 k/uL (1.3-7.7); Neutrophils % (A) 73 %; Platelet Count 244 k/uL (150-450); RBC 4.87 m/uL (3.80-5.40); RDW 12.7 % (11.5-15.5); WBC 11.4 k/uL (3.8-10.6)
[2023-05-28 20:34] LABS: Partial Thromboplastin Time 24.5 sec (22.0-30.0); Prothrombin Time 10.5 sec (9.0-12.0)
[2023-05-28 20:56] LABS: ALT 16 U/L (4-34); AST 19 U/L (14-36); African American GFR (CKD) >90 (>60 ml/min/1.73 sqM); Albumin 4.8 g/dL (3.5-5.0); Alcohol <10 mg/dL; Alkaline Phosphatase 74 U/L (38-126); Anion Gap 12 mmol/L; Blood Urea Nitrogen 8 mg/dL (7-17); Calcium 9.9 mg/dL (8.4-10.2); Carbon Dioxide 22 mmol/L (22-30); Chloride 105 mmol/L (98-107); Glucose 114 mg/dL (74-99); Magnesium 1.8 mg/dL (1.6-2.3); Non-African American GFR(CKD) >90 (>60 ml/min/1.73 sqM); Potassium 3.9 mmol/L (3.5-5.1); Sodium 139 mmol/L (137-145); Total Bilirubin 0.5 mg/dL (0.2-1.3); Total Protein 7.9 g/dL (6.3-8.2)
[2023-05-28] MEDS ORDERED: NALOXONE 0.4 MG/ML 1 ML VIAL IV PRN (21:49)
[2023-05-28] MEDS ORDERED: LORazepam 0.5 MG TAB PO PRN (21:49)
[2023-05-28] MEDS: SODIUM CHLORIDE 0.9% 1,000 ML IV SCH (21:55)
[2023-05-29] MEDS: SODIUM CHLORIDE 0.9% 1,000 ML IV SCH (11:11)
[2023-05-29 11:23] LABS: Appearance,Urine Cloudy (Clear); Bacteria,Urine Occasional /hpf; Bilirubin,Urine Negative (Negative); Blood,Urine Negative (Negative); Color,Urine Colorless; Glucose,Urine (UA) Negative (Negative); Ketones,Urine Negative (Negative); Leukocyte Esterase,Urine Negative (Negative); Mucus,Urine Rare /hpf; Nitrite,Urine Negative (Negative); Protein,Urine Negative (Negative); RBC,Urine 1 /hpf (0-5); Specific Gravity,Urine 1.009 (1.001-1.035); Squamous Epithelial Cell,Urine 10 /hpf (0-4); Urobilinogen,Urine <2.0 mg/dL (<2.0); WBC,Urine 1 /hpf (0-5)
[2023-05-29 11:41] LABS: Amphetamine Screen,Urine Not Detected (NotDetected); Barbiturate Screen,Urine Detected (NotDetected); Benzodiazepines Screen,Urine Detected (NotDetected); Cocaine Screen,Urine Not Detected (NotDetected); Methadone Screen, Urine Not Detected (NotDetected); Opiate Screen,Urine Not Detected (NotDetected); Oxycodone Screen, Urine Not Detected (NotDetected); Phencyclidine Screen,Urine Not Detected (NotDetected); Tricyclic Antidepressant,Urine Not Detected (NotDetected); Urn Cannabinoid Scrn Not Detected (NotDetected)
[2023-05-29] MEDS ORDERED: NAPROXEN 250 MG TAB PO PRN (11:45)
--- NOTE | 2023-05-29 11:47 | P.CNNES ---
History of Present Illness Consult date: 05/29/23 Requesting physician: Paras Solomon Reason for Consult: ams History of Present Illness: This is a 32-year-old woman who presented emergency department because of altered mental status. I personally seen the patient's on 05/26/2023 during her her recent visit because of her altered mental status, headache, visual disturbance patient declined MRI and MRV. This time around she is confused. She is unable to provide a good history. She was complaining of headache but could not localize it initially she stated over the frontal region than stated over throughout the head with some visual disturbance but again she is a poor historian As stated above I personally saw the patient on 05/26/2023 and at that time she was confused but was complaining with headache with visual disturbance and I felt possibly complicated migraine but wanted to rule out venous thrombosis so I recommended the MRI of the brain MRV but it seems that the patient declined and wanted as an outpatient. I started on Topamax and I'll not sure if she received it or not. She had a routine EEG which was normal. She had a CT of the head which was unremarkable. She had CT angiography of the head and neck which was also unremarkable other than the suspected tiny 2 mm infundibulum at the origin of the left posterior communicating artery She had a TSH was while what a normal. Please refer to my notes for further details. Review of Systems Review of systems Limited but the positive and negative as per HPI Past Medical History Past Medical History: No Reported History History of Any Multi-Drug Resistant Organisms: None Reported Past Surgical History: Tubal Ligation Additional Past Surgical History / Comment(s): Patient had a D&C for a miscarriage. Past Anesthesia/Blood Transfusion Reactions: No Reported Reaction Past Psychological History: No Psychological Hx Reported Smoking Status: Current every day smoker Past Alcohol Use History: None Reported Past Drug Use History: None Reported - Past Family History Father History Unknown: Yes Family Medical History: No Reported History Medications and Allergies Home Medications Medication Instructions Recorded Confirmed Type Ondansetron [Zofran] 4 mg PO BID PRN 05/28/23 05/28/23 History Topiramate [Topamax] 50 mg PO DIRECTED 05/28/23 05/28/23 History hydrOXYzine HCL [Atarax] 25 mg PO TID PRN 05/28/23 05/28/23 History Allergies Allergy/AdvReac Type Severity Reaction Status Date / Time No Known Allergies Allergy Verified 05/28/23 20:11 Physical Examination - Vital Signs Vital Signs: Vital Signs Temp Pulse Resp BP Pulse Ox 05/29/23 11:08 97.8 F 84 16 144/105 96 05/29/23 06:00 89 16 148/105 96 05/28/23 22:00 78 16 108/71 98 05/28/23 19:30 98.7 F 96 18 151/111 98 Intake and Output 05/28/23 05/29/23 05/29/23 22:59 06:59 14:59 Other: Weight 54.431 kg GENERAL: The patient is lying in bed and is not in acute distress. NEUROLOGICAL: Limited examination because of her confusion. Patient is oriented to self and stated she is in the hospital and correctly sta paddy the year and the multiple is very slow in responding to questions following commands. She was able to name objects correctly such as pen and watch. Speech seems slow. No neglect The pupils are round equal and reactive to light. Visual cunningham are full to consultation. Extraocular movement is limited but was tracking on both sides No facial weakness. No dysarthria. Motor the strength is limited assessment because of her cooperation but was able to lift extremities above gravity I could not assess individual muscle because of her cooperation Sensation appears normal throughout to touch. Results - Laboratory Findings CBC and BMP: 05/28/23 20:16 05/28/23 20:16 Abnormal Lab Findings: Abnormal Labs 05/28/23 05/28/23 05/29/23 20:16 20:16 11:05 WBC 11.4 H Neutrophils # 8.3 H Creatinine 0.49 L Glucose 114 H Urine Appearance Cloudy H Ur Squamous Epith Cells 10 H Urine Bacteria Occasional H Urine Mucus Rare H Assessment and Plan Assessment: This is a 32-year-old woman who was recently in our facility on 05/25/2023 for confusion, headache, visual disturbance and she refuses MRI and monitored as an outpatient. She had an EEG during that the visits which was normal. She comes back with confusion. Encephalopathy of unknown etiology. Cephalgia: Unsure if due to complicated migraine versus other etiology History of hysterectomy Family history of migraine (mother) Plan: I'll get a repeat routine EEG. I'll pursue with MRI of the brain and MRV I ordered ESR, CRP, a day, vitamin B12, folate. I start the patient on melatonin 1 mg daily at bedtime can help with the migraine. Will avoid Topamax since it can cause confusion. Start the patient on naproxen 500 mg 1 tablet twice a day when necessary for the headache Urine drug screen is ordered by the ED and pending Psychiatry team is consulted Defer the rest of the medical management to primary team. Thank you for the consultation Time with Patient: Greater than 30
[2023-05-29] MEDS ORDERED: busPIRone HCl 10 MG TAB PO STA (13:28)
--- NOTE | 2023-05-29 13:36 | P.CN ---
Psychiatric Consult - . 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 REASON FOR REFERRAL: Psychiatry was consulted for ["AMS"] HISTORY OF PRESENT ILLNESS: The patient presented to the hospital on 05/28 and brought in by her and family members. Apparently patient has been confused and having altered mental status. Patient was seen previously for in the ER. Patient was initially poor historian. Patient had an EEG apparently by neurology on her first visit which did not show anything conclusive. Patient's current urine drug screen was positive for barbiturates and benzodiazepines. Patient is again followed by neurology and currently has an MRI pending, EEG is also pending. Patient's family was in the room and agreeable speech therapy assistant. They state that patient was at her baseline about a week ago when she began having blurry vision and headache and claims that she was "not feeling right" and states that she was having vision changes as well which now have been resolved. She claims patient has been "spacey" and also anxious and was worried about being "locked in the psych unit". Patient was seen lying in bed and agreeable speech therapy assistant. She is fairly calm and appropriate. She did endorse some anxiety and states that she has a history of some panic attacks at times. Claims that she knows her age, name, date of and also her current location. She was fairly directable during conversation and logical. She states that she was having a headache blurry vision during the week and claims that she was "freaked out about it" and states that she called her boss and claimed that she was feeling unwell. She went to an urgent care and also to the hospital. She claims that at this time she is feeling a bit better however is having a mild anxiety. Claims that she is worried about being locked in a psych unit at this time. States that her mood is fair, anxiety poor. States that her sleep is poor about 45 hours a night. States that her appetite is on and off depending on her schedule at work. At this time patient denies any suicidal or homical ideations, intent or plan. Patient denies any auditory, visual hallucinations and denies any paranoia or delusions. Patients admits to using cigarettes daily, claims to drink alcohol occasionally. Denies any other recreational drug use PAST PSYCHIATRIC HISTORY: Patient has no significant psychiatric history . [Patient denies being on any psychiatric medications.] [Patient denies any previous psychiatric hospitalizations.] [Patient denies any psychiatric outpatient follow-up.] [Patient denies any history of suicide attempts in the past.] Past Medical History Past Medical History: No Reported History History of Any Multi-Drug Resistant Organisms: None Reported Past Surgical History: Tubal Ligation Additional Past Surgical History / Comment(s): Patient had a D&C for a miscarriage. Past Anesthesia/Blood Transfusion Reactions: No Reported Reaction Past Psychological History: No Psychological Hx Reported Smoking Status: Current every day smoker Past Alcohol Use History: None Reported Past Drug Use History: None Reported ALLERGIES: as per EMR. CHEMICAL DEPENDENCY HISTORY: as per HPI. FAMILY PSYCHIATRIC/SUBSTANCE USE HISTORY: [denies] SOCIAL HISTORY: Patient was born and raised in [place] and [facility]. She claims that she completed her GED, she is currently made has 2 kids. 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 She denies any legal history at this time. MENTAL STATUS EXAM: General Appearance: Patient appears to be short in stature, wearing glasses, stated age is alert, pleasant, and cooperative. Patient appears to have [fair] hygiene and grooming wearing hospital gown with [fair] eye contact. Behavior: [Patient is calmly lying in bed without any agitated behavior.] Attempts to cooperate. Appears mildly nervous. Speech: Patient's speech is fluent and nonpressured. Mood/Affect: Patient reports their mood is "[just a bit anxious]", affect is congruent Suicidality/Homicidality: Patient denies having any suicidal or homicidal ideation intent or plan. Perceptions: Patient denies any visual hallucinations [and denies any auditory hallucinations] Though content/process: There is no evidence of any delusional thought content and thought process is linear and goal-directed. Memory and concentration: AOX3, grossly intact for the purposes of this session. Can spell "WORLD" backwards Judgment and insight: Fair IMPRESSIONS: Delirium, unknown etiology anxiety disorder NOS nicotine dependence PLAN: -At this time patient DOES NOT meet criteria for inpatient psychiatric admission. -Would recommend the following medication changes/additions: d/c ativan and other bzd as these could precipitate, worsen patient's encephalopathy/delirium. Patient is agreeable to try BuSpar 10 mg twice a day when necessary for anxiety. Trazodone 25 mg daily at bedtime when necessary for insomnia. she can be given a 10 day script of these if she wishes upon discharge. [-drop worker to provide patient with outpatient mental health/psychiatry resources for appropriate follow up upon discharge]. patient will also need to f/u with her pcp [-Communicated plan to patient's nurse] -currently awiaitng MRI and EEG results. -Psychiatry will sign off at this time] -Please contact with any questions. 05/29/23 13:29
--- NOTE | 2023-05-29 17:31 | P.HPIM ---
History of Present Illness H&P Date: 05/29/23 This is a pleasant 32 year old female with medical history of daily tobacco use, anxiety, tubal ligation. Presents to the emergency room for altered mental status and confusion. Per the at the bedside patient seems forgetful and confused with onset of Thursday. He also reports patient has not been sleeping well and having increased thoughts of paranoia. She is also here for MRI which was scheduled as an outpatient. Patient was in the ER 4 days ago for symptoms of blurry vision and left arm weakness with accompanied headache. Patient also had episodes of vomiting at that time. Patient underwent EEG, Brain CT, CT angiography which were all negative for acute findings. Patient currently denies headache, dizziness or lightheadedness. Denies focal weakness. Denies chest pain, denies shortness of breath. No auditory or visual hallucinations reported. No family history of mental health disorders and no personal history with exception of anxiety. 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 Patient states this all started when she thought she missed a day of work but she didn't and then got confused. She was also worried about her health and vision changes and has been having increased anxiety. The states she seems stressed lately as she has been working alot more than usual. Patient has white count of 11.4, electrolytes are essentially unremarkable, Urine abnormal but not suggestive of an acute urinary tract infection. Urine drug tox showing barbiturates and benzodiazepines. Serum alcohol less than 10. Patient is admitted to the hospital and neurology, psychiatry have been consulted. REVIEW OF SYSTEMS: CONSTITUTIONAL: No fever, no malaise, no fatigue. HEENT: No recent visual problems or hearing problems. Denied any sore throat. CARDIOVASCULAR: No chest pain, orthopnea, PND, no palpitations, no syncope. PULMONARY: No shortness of breath, no cough, no hemoptysis. GASTROINTESTINAL: No diarrhea, no nausea, no vomiting, no abdominal pain. NEUROLOGICAL: No headaches, no weakness, no numbness. HEMATOLOGICAL: Denies any bleeding or petechiae. GENITOURINARY: Denies any burning micturition, frequency, or urgency. MUSCULOSKELETAL/RHEUMATOLOGICAL: Denies any joint pain, swelling, or any muscle pain. ENDOCRINE: Denies any polyuria or polydipsia. The rest of the 14-point review of systems is negative. PHYSICAL EXAMINATION: GENERAL: The patient is alert and oriented x3, not in any acute distress. Well developed, well nourished. HEENT: Pupils are round and equally reacting to light. EOMI. No scleral icterus. No conjunctival pallor. Normocephalic, atraumatic. No pharyngeal erythema. No thyromegaly. CARDIOVASCULAR: S1 and S2 present. No murmurs, rubs, or gallops. PULMONARY: Chest is clear to auscultation, no wheezing or crackles. ABDOMEN: Soft, nontender, nondistended, normoactive bowel sounds. No palpable organomegaly. MUSCULOSKELETAL: No joint swelling or deformity. EXTREMITIES: No cyanosis, clubbing, or pedal edema. NEUROLOGICAL: Gross neurological examination did not reveal any focal deficits. SKIN: No rashes. Assessment Altered mental status rule out psychosis vs. acute delirium brought on by life stressors and anxiety Chronic and ongoing nicotine use Anxiety Luekocytosis GI prophylaxis Full Code Plan Pending psychiatry and neurology evaluation Pending MRI Admitted in observation, if MRI negative patient can be discharged home to follow up with [facility] outpatient. Patient to continue on Buspar for anxiety. Recommending a sleep aid The impression and plan of care has been dictated by Gabriella Rios Nurse Practitioner as directed. Dr. Jamil MD I have performed a history and physical examination and medical decision making of this patient, discussed the same with the dictator, and agree with the dictators assessment and plan as written, documented as a scribe. Based on total visit time, I have performed more than 50% of this visit. Past Medical History Past Medical History: No Reported History History of Any Multi-Drug Resistant Organisms: None Reported Past Surgical History: Tubal Ligation Additional Past Surgical History / Comment(s): Patient had a D&C for a miscarriage. Past Anesthesia/Blood Transfusion Reactions: No Reported Reaction Past Psychological History: No Psychological Hx Reported Smoking Status: Current every day smoker Past Alcohol Use History: None Reported Past Drug Use History: None Reported - Past Family History Father History Unknown: Yes Family Medical History: No Reported History Medications and Allergies Home Medications Medication Instructions Recorded Confirmed Type Ondansetron [Zofran] 4 mg PO BID PRN 05/28/23 05/28/23 History Topiramate [Topamax] 50 mg PO DIRECTED 05/28/23 05/28/23 History hydrOXYzine HCL [Atarax] 25 mg PO TID PRN 05/28/23 05/28/23 History Allergies Allergy/AdvReac Type Severity Reaction Status Date / Time No Known Allergies Allergy Verified 05/28/23 20:11 Physical Exam Vitals: Vital Signs Temp Pulse Resp BP Pulse Ox 05/29/23 06:00 89 16 148/105 96 05/28/23 22:00 78 16 108/71 98 05/28/23 19:30 98.7 F 96 18 151/111 98 Intake and Output 05/28/23 05/29/23 05/29/23 22:59 06:59 14:59 Other: Weight 54.431 kg Results CBC & Chem 7: 05/28/23 20:16 05/28/23 20:16 Labs: Abnormal Lab Results - Last 24 Hours (Table) 05/28/23 05/28/23 Range/Units 20:16 20:16 WBC 11.4 H (3.8-10.6) k/uL Neutrophils # 8.3 H (1.3-7.7) k/uL Creatinine 0.49 L (0.52-1.04) mg/dL Glucose 114 H (74-99) mg/dL Assessment and Plan Time with Patient: Less than 30
[2023-05-29 17:44] LABS: C Reactive Protein <0.30 mg/dL (0.00-0.80)
--- NOTE | 2023-05-29 19:07 | EEG ---
ELECTROENCEPHALOGRAM REPORT CLINICAL HISTORY: This is a 32-year-old woman with altered mental status. The video EEG is obtained to evaluate for seizure and epileptiform activity. RELEVANT MEDICATIONS: Ativan. EEG TYPE: A routine 21-channel EEG with video using the 10/20 electrode placement system. DESCRIPTION: Wakefulness is only obtained. During awake state, the posterior-dominant rhythm consists of afu-ec-bvbeucri voltage of 10 to 11 Hz activity. There is no physiological stage II sleep architecture. There is no focal slowing. There is diffuse ratc-[id number] myogenic artifact. INTERICTAL AND ICTAL: None. ACTIVATION PROCEDURE: Photic stimulation did not evoke a posterior driving response. There is no abnormality during the photic stimulation. Hyperventilation is not performed. CLINICAL INTERPRETATION: This is a normal routine EEG. There is no focal slowing, epileptiform discharge, or seizure on the EEG. A normal routine EEG does not rule any underlying epilepsy. Clinical correlation is recommended. NOVA / DEBRAN: [id number] /
[2023-05-29] MEDS: busPIRone HCl 10 MG TAB PO PRN (20:49)
[2023-05-29] MEDS: traZODone HCL 50 MG TAB PO PRN (20:49)
[2023-05-29] MEDS ORDERED: MELATONIN 1 MG TAB PO SCH (21:00)
[2023-05-30] MEDS: SODIUM CHLORIDE 0.9% 1,000 ML IV SCH ×2 (06:40→14:10)
[2023-05-30] MEDS ORDERED: LORazepam 2 MG/ML INJ IV STA (09:00)
--- NOTE | 2023-05-30 09:34 | P.PN ---
Subjective Progress Note Date: 05/30/23 Principal diagnosis: IMPRESSIONS: Delirium, unknown etiology anxiety disorder NOS nicotine dependence I reviewed the notes from Dr. Galicia's who signed off on her they wanted to know if it was okay to discontinue the 1 on 1 sitter. I interviewed the patient and her . Mental status she is alert pleasant good sense of humor still slightly disoriented when I asked her the date she read it off the board unfortunately the nurse had written the wrong day so she got the wrong day but she couldn't tell me what year it was and where she was at who people in the room were. She denied any suicidality or homicidality. Assessment she seems to be doing well enough to not require one-on-one and her agreed that she seemed to be doing much better. So I gave an order to the nurse to discontinue the one-on-one Objective - Vital Signs Vital signs: Vital Signs Temp 98.9 F 05/30/23 08:02 Pulse 119 H 05/30/23 08:02 Resp 18 05/30/23 08:02 BP 161/105 05/30/23 08:02 Pulse Ox 95 05/30/23 08:02 FiO2 Intake & Output 05/29/23 05/30/23 05/30/23 18:59 06:59 18:59 Weight 54.431 kg Other: Voiding Method Toilet # Voids 1 - Labs CBC & Chem 7: 05/28/23 20:16 05/28/23 20:16 Labs: Abnormal Lab Results - Last 24 Hours (Table) 05/29/23 Range/Units 11:05 Urine Appearance Cloudy H (Clear) Ur Squamous Epith Cells 10 H (0-4) /hpf Urine Bacteria Occasional H (None) /hpf Urine Mucus Rare H (None) /hpf Ur Barbiturates Screen Detected H (NotDetected) U Benzodiazepines Scrn Detected H (NotDetected)
--- NOTE | 2023-05-30 12:30 | P.PN ---
Subjective Progress Note Date: 05/30/23 I am following-up with patient and she is accompanied with her who is at bedside. Seems that her confusion has drastically improved compared to yesterday but per the nurse continues to have some mild confusion and the patient denies of any further headache, denies of any visual disturbance. Denie s of any focal deficit or numbness or any nausea. She stated that her cousin has history of seizures from her father's side. She stated that she could not tolerate Topamax when she got it couple days ago. Objective - Vital Signs Vital signs: Vital Signs Temp 98.9 F 05/30/23 08:02 Pulse 119 H 05/30/23 08:02 Resp 18 05/30/23 08:02 BP 161/105 05/30/23 08:02 Pulse Ox 95 05/30/23 08:02 FiO2 Intake & Output 05/29/23 05/30/23 05/30/23 18:59 06:59 18:59 Weight 54.431 kg Other: Voiding Method Toilet # Voids 1 - Exam General: The patient is sitting up in bed and is not in acute distress. Neuro: Patient is awake alert oriented to self place and time. She is able to name objects that was shown to her correctly such as pen and watch. She was able to name the current state and the capital [facility]. Upon asking her to name her medications as she looked at her son and it took a few seconds but then she was able to name her kids correctly. Her mentation seems better today compared to yesterday. She is able to follow simple commands. No aphasia and no neglect. The pupils are round equal reactive to light. Peoples are around 4 mm bilaterally. Visual cunningham are full to confrontation. As she has some sort of a red spot over on the left sclera of left eye stated that is old. Extraocular movement is intact no nystagmus. No facial weakness. No dysarthria. Motor strength is 5 out of 5 throughout Cerebellar is normal finger to nose bilaterally Sensation is normal to touch throughout Some other workup during this hospital visit consisted of: ESR is less than 1 CRP is less than 0.30 Vitamin B12 is 402 Folate is 13.20 Routine EEG is normal. There is no focal slowing, epileptiform discharges or seizure on the EEG. - Labs CBC & Chem 7: 05/28/23 20:16 05/28/23 20:16 Assessment and Plan Assessment: This is a 32-year-old woman who was recently in our facility on 05/25/2023 for confusion, headache, visual disturbance and she refuses MRI and monitored as an outpatient. She had an EEG during that the visits which was normal. She comes back with confusion. Patient's confusion has resolved and denies of any headache. Transient Encephalopathy of unknown exact etiology. Unsure if the patient is present to our facility with post ictal confusion and the EEG is not picking up by the seizures since she's post ictal. Transient Cephalgia: Unsure if due above vs complicated migraine. History of hysterectomy Family history of migraine (mother) Family history of seizure (cousin) Plan: Pending MRI of the brain and MRV I start the patient on melatonin 1 mg daily at bedtime can help with the migraine. Will avoid Topamax since it can cause confusion. Start the patient on naproxen 500 mg 1 tablet twice a day when necessary for the headache Her recent repeat EEG during this admission and her previous hospital visits this past week were normal. I am unsure if the patient is presenting with post ictal confusion and the EEG is not picking up by any seizure or discharges systems she is a presenting post ictal. Patient and her are in agreement off on being started on antiepileptic drug. Her MRI is negative. We'll start her on Keppra 500 mg 1 tablet twice a day and I notified her about s maribel effects of the medication. She could not tolerate Topamax since that she felt she was more sleepy/confused with the medication Recommend an epilepsy monitoring unit (EMU) or prolonged EEG to capture her episodes as outpatient Psychiatry team is consulted Because of her episodes and concern for questionable seizure I recommended the patient to avoid driving for 6 month until seizure free, avoid heights, avoids swimming unassisted or using heavy machinery. I think this should be addressed with her neurologist as an outpatient and if they feel this is not a seizure then the that restrictions can be removed. Defer the rest of the medical management to primary team. Gamma the patient to follow-up with a neurologist in outpatient within 1-2 weeks Plan discussed with the patient, her was at bedside and her nurse If MRI is negative then the patient is clear from a neurologic perspective. Time with Patient: Less than 30
--- NOTE | 2023-05-30 13:22 | MR ---
EXAMINATION TYPE: MR brain wo/w con DATE OF EXAM: 05/30/2023 COMPARISON: CT brain 5 days earlier HISTORY: Headache, Confusion unknown etiology TECHNIQUE: Multiplanar, multisequence images of the brain and brainstem is performed without and with IV contras t, utilizing 5.5 mL intravenous Gadavist . FINDINGS: Diffusion weighted images demonstrate no evidence of a recent infarct or other diffusion ab normality. The ventricular system and cisternal spaces are normal in size and appearance. The brain volume is age appropriate. There are 3-4 T2 hyperintense lesions in the posterior right frontal lobe at level of driver radiata axial image 21. Lesions are nonspecific in appearance and distribution. Midline structures demonstrate normal morphology. The craniocervical junction appears within normal limits. Post contrast images demonstrate no abnormal enhancement. The dural venous sinuses appear pa tent. The visualized sinuses are clear and the globes are intact. IMPRESSION: 1. No MRI evidence for recent infarct. No abnormal enhancement. 2. Mild nonspecific right-sided white matter changes. Altered vascular mechanics related to product o f chronic migraine headaches is in the broad differential.
--- NOTE | 2023-05-30 13:27 | MR ---
EXAMINATION TYPE: MR venography head wo con DATE OF EXAM: 05/30/2023 COMPARISON: MRI brain same day. CTA 5 days earlier HISTORY: Headaches Standard multiplanar, multisequence MRI departmental protocol Multiplanar, multisequence images of the brain were acquired without contrast. Three-D reconstructed images created and a workstation.. FINDINGS: Patent superior sagittal sinus along with straight sinus. Patent internal cerebral vein of Baptiste and small caliber inferior sagittal sinus. Patent bilateral transverse sinuses draining into th e straight sinuses and into the bilateral internal jugular veins. IMPRESSION: No acute deep cerebral venous thrombosis.
[2023-05-30] MEDS: levETIRAcetam 500 MG TAB PO SCH (20:10)
--- NOTE | 2023-05-30 21:12 | P.PN ---
Subjective Progress Note Date: 05/30/23 This is a pleasant 32 year old female with medical history of daily tobacco use, anxiety, tubal ligation. Presents to the emergency room for altered mental status and confusion. Per the at the bedside patient seems forgetful and confused with onset of Thursday. He also reports patient has not been sleeping well and having increased thoughts of paranoia. She is also here for MRI which was scheduled as an outpatient. Patient was in the ER 4 days ago for symptoms of blurry vision and left arm weakness with accompanied headache. Patient also had episodes of vomiting at that time. Patient underwent EEG, Brain CT, CT angiography which were all negative for acute findings. Patient currently denies headache, dizziness or lightheadedness. Denies focal weakness. Denies chest pain, denies shortness of breath. No auditory or visual hallucinations reported. No family history of mental health disorders and no personal history with exception of anxiety. 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 Patient states this all started when she thought she missed a day of work but she didn't and then got confused. She was also worried about her health and vision changes and has been having increased anxiety. The states she seems stressed lately as she has been working alot more than usual. Patient has white count of 11.4, electrolytes are essentially unremarkable, Urine abnormal but not suggestive of an acute urinary tract infection. Urine drug tox showing barbiturates and benzodiazepines. Serum alcohol less than 10. Patient is admitted to the hospital and neurology, psychiatry have been consulted. 05/30/2023 Patient remains confused and alert x 1. Patient focused on her leaving the hospital. She is unable to get out a complete sentence. She is wandering the halls and hard to redirect. Patient was able to sit in a chair and brought back to her room. at bedside. Patient with no focal deficits. She is staring off in short spells and not responsive to her name when this happens. Concern for possible seizure like activity. Discussed with neurology. Patient had follow up EEG which was a normal routine EEG, no focal slowing, epileptiform discharge, or seizure on EEG. This does not rule out underlying epilepsy. Brain MRI showing no recent infarction, no abnormal enhancement. Mild nonspecific right-sided white matter changes. Altered vascular mechanics related to product of chronic migraine headaches in the broad differential. MR venography of the head shows no acute deep cerebral venous thrombosis. Seen in consult by psychiatry. 1:1 sitter discontinued. Patient started on naproxen for migraine, recommended to avoid topamax. Patient is being started on keppra prophylactically due to concern for seizure. Review of Systems Constitutional: Denied any fatigue denied any fever. Cardio vascular: denied any chest pain, palpitations Gastrointestinal: denied any nausea, vomiting, diarrhea Pulmonary: Denied any shortness of breath cough Neurologic denied any new focal deficits All inpatient medications were reviewed and appropriate changes in these medications as dictated in the interval history and assessment and plan. PHYSICAL EXAMINATION: GENERAL: The patient is alert and oriented x3, not in any acute distress. Well developed, well nourished. HEENT: Pupils are round and equally reacting to light. EOMI. No scleral icterus. No conjunctival pallor. Normocephalic, atraumatic. No pharyngeal erythema. No thyromegaly. CARDIOVASCULAR: S1 and S2 present. No murmurs, rubs, or gallops. PULMONARY: Chest is clear to auscultation, no wheezing or crackles. ABDOMEN: Soft, nontender, nondistended, normoactive bowel sounds. No palpable organomegaly. MUSCULOSKELETAL: No joint swelling or deformity. EXTREMITIES: No cyanosis, clubbing, or pedal edema. NEUROLOGICAL: Gross neurological examination did not reveal any focal deficits. SKIN: No rashes. Assessment Altered mental status transient encephalopathy of unknown origin. Patient has postictal confusion. rule out seizure. Chronic and ongoing nicotine use Migraine vs. chronic Family history of migraine and seizure. Anxiety Luekocytosis GI prophylaxis Full Code Plan Psychiatry and neurology following Patient is being started on keppra prophylactically also naproxen for headache. Neurology recommending Epilepsy monitoring unit/ outpatient prolonged EEG on discharge Patient is also given melatonin for sleep Patient is advised no driving, operating heavy machinery, avoid heights and also swimming alone for the next 6 months until seizure free. Patient to follow up with neurology outpatient in 1 to 2 weeks and to further discuss the restrictions and removing them if further work reveals there is truly no seizure likely activity. At this time this is unable to rule out. D/C home in the AM. The impression and plan of care has been dictated by Gabriella Rios, Nurse Practitioner as directed. Dr. Jamil MD I have performed a history and physical examination and medical decision making of this patient, discussed the same with the dictator, and agree with the dictators assessment and plan as written, documented as a scribe. Based on total visit time, I have performed more than 50% of this visit. Objective - Vital Signs Vital signs: Vital Signs Temp 98.9 F 05/30/23 08:02 Pulse 119 H 05/30/23 08:02 Resp 18 05/30/23 08:02 BP 161/105 05/30/23 08:02 Pulse Ox 95 05/30/23 08:02 FiO2 Intake & Output 05/29/23 05/30/23 05/30/23 18:59 06:59 18:59 Weight 54.431 kg Other: Voiding Method Toilet # Voids 1 - Labs CBC & Chem 7: 05/28/23 20:16 05/28/23 20:16 Labs: Abnormal Lab Results - Last 24 Hours (Table) 05/29/23 Range/Units 11:05 Urine Appearance Cloudy H (Clear) Ur Squamous Epith Cells 10 H (0-4) /hpf Urine Bacteria Occasional H (None) /hpf Urine Mucus Rare H (None) /hpf Ur Barbiturates Screen Detected H (NotDetected) U Benzodiazepines Scrn Detected H (NotDetected) Assessment and Plan Time with Patient: Less than 30
[2023-05-31] MEDS: SODIUM CHLORIDE 0.9% 1,000 ML IV SCH ×2 (04:15→16:01)
[2023-05-31] MEDS: levETIRAcetam 500 MG TAB PO SCH ×2 (09:28→20:28)
[2023-05-31] MEDS: busPIRone HCl 10 MG TAB PO PRN (10:45)
--- NOTE | 2023-05-31 11:34 | P.PN ---
Subjective Progress Note Date: 05/31/23 I am following-up with patient and she is accompanied with her . According to the primary team PROFESSOR OF [employer] as well as the nurse yesterday after I saw her she was being walked in the hallway and she became confused, also was notified she kept on looking at her every time she was asked questions as if she's puzzled. Patient stated before she came to the second time to the emergency department this past week she stated that the when she was working she was having Visual disturbance blurry vision confused as a result she had palpitation and was anxious. She denies being anxious prior to that. She denies headache with those episodes. She denied any focal weakness. At one time she stated that one of her episodes she was confused and did not have any visual disturbance and that's why she had the one of at and anxiety panic episodes but later she denied that and that the nurse accompanied me during this conversation. She stated that her mother had history of lung cancer in her 50s. Objective - Vital Signs Vital signs: Vital Signs Temp 98.4 F 05/31/23 08:45 Pulse 88 05/31/23 08:45 Resp 16 05/31/23 08:45 BP 129/97 05/31/23 08:45 Pulse Ox 100 05/31/23 08:45 FiO2 Intake & Output 05/30/23 05/31/23 05/31/23 18:59 06:59 18:59 Intake Total 325 500 Balance 325 500 Intake: Intake, IV Titration 325 Amount Sodium Chloride 0.9% 1, 325 000 ml @ 75 mls/hr IV . [id number] [facility] Rx#:[id number] Oral 500 Other: Voiding Method Toilet # Voids 2 - Exam General: The patient is sitting up in bed and is not in acute distress. Neuro: Patient is awake alert oriented to self place and time. She correctly names objects such as cup, pen and watch. She was able to name the her kids names and their ages correctly and was more responsive today regarding that compared to yesterday. Very minimally that she looked at upon asking her questions. She is following simple commands. No aphasia and no neglect. The pupils are round equal reactive to light. Pupils are around 4 mm bilaterally. Visual cunningham are full to confrontation. Has red blotch over on the left sclera of left eye stated that is old. Extraocular movement is intact no nystagmus. No facial weakness. No dysarthria. Motor strength is 5 out of 5 throughout Cerebellar is normal finger to nose bilaterally Sensation is normal to touch throughout Some other workup during this hospital visit consisted of: Urine drug screen is positive for barbiturates and benzo. The rest is not detected. Serum alcohol was less than 10 ESR is less than 1 CRP is less than 0.30 Vitamin B12 is 402 Folate is 13.20 ORIANA negative Routine EEG is normal. There is no focal slowing, epileptiform discharges or seizure on the EEG. MRI of the brain with and without is reported as no MRI evidence for recent infarct. No abnormal enhancement. Mild nonspecific right sided matter changes. Altered vascular mechanics related to a product of chronic migraine headache is in the broad differential. Personally reviewed the MRI and agree the there is no acute or subacute stroke, there is no enhancement. The patient had the about 3-4 nonspecific white matter changes over the right frontal region and the differential is broad. MRV is reported as no acute deep the cerebral venous thrombosis - Labs CBC & Chem 7: 05/28/23 20:16 05/28/23 20:16 Assessment and Plan Assessment: This is a 32-year-old woman who was recently in our facility on 05/25/2023 for confusion, headache, visual disturbance and she refuses MRI and monitored as an outpatient. She had an EEG during that the visits which was normal. She comes back with confusion. Patient stated that she presented back to the visual disturbance that made her feel anxious and this happened multiple times. She's been having fluctuation of confusion. Transient episodes of visual disturbance with confusion (encephalopathy). She would deny headache with most of these episodes: Unknown exact cause. She had 2 routine EEGs which were normal in this past week. She had MRI of the brain which shows nonspecific white matter changes over the right frontal region and unsure exactly cause. But no stroke or mass in the brain and the MRV was negative. Unsure if patient's having subclinical seizures and that were not catching episodes during that routine EEG vs questionable complicated migraine but she denies headache with most of episodes. History of hysterectomy Family history of lung cancer (mother in her 50's year old). Family history of migraine (mother) Family history of seizure (cousin) Plan: I ordered MRI of the cervical spine and lumbar puncture to see if there is any lesions supportive of demylinating disease. I spoke with Dr. Hollis today and he stated he is busperson and perform LP later today. Ordered HIV, syphilis, hepatitis panel, Lyme disease, EBV Aamodt herpes 1 and 2. Ordered the CSF study with apprehensive viral detection, multiple sclerosis panel. I start the patient on melatonin 1 mg daily at bedtime can help with the migraine. Will avoid Topamax since it can cause confusion. Started the patient on naproxen 500 mg 1 tablet twice a day when necessary for the headache Her recent repeat EEG during this admission and her previous hospital visits this past week were normal. I am unsure if the patient is presenting with post ictal confusion and the EEG is not picking up by any seizure or discharges systems she is a presenting post ictal. Patient and her are in agreement off on being started on antiepileptic drug. I started her on Keppra 500 mg 1 tablet twice a day on 05/30/2023 and first dose was night dose. I notified her about side effects of the medication. If work-up reveals other causes of her confusion and visual disturbance then can discontinue Keppra. She could not tolerate Topamax since that she felt she was more sleepy/confused with the medication Recommend an epilepsy monitoring unit (EMU) or prolonged EEG to capture her episodes as outpatient if continues to have further episodes Psychiatry team seen her and signed off. If work-up is negative recommend psychiatry re-evaluation. Because of her episodes and concern for questionable seizure and her continues fluctuation of confusion, I recommended the patient to avoid driving for 6 month until seizure free, avoid heights, avoids swimming unassisted or using heavy machinery. I think this should be addressed with her neurologist as an outpa tient and if they feel this is not a seizure and her confusion has resolved then the that restrictions can be removed. Defer the rest of the medical management to primary team. Recommend the patient to follow-up with a neurologist in outpatient within 1-2 weeks Plan discussed with the patient, her was at bedside and her nurse. Dr. Castillo will start neurology service tomorrow A.M. Time with Patient: Less than 30
[2023-05-31 12:50] LABS: Glucose,CSF 57 mg/dL (40-70); Total Protein,CSF 31 mg/dL (12-60)
--- NOTE | 2023-05-31 13:22 | P.PCN ---
Date of Procedure: 05/31/23 Procedure(s) Performed: Preoperative diagnosis:1- Confusion. 2-altered mental status Post operative diagnoses: 1-confusion. 2-altered mental status Procedure= lumbar puncture Anesthesia= local anesthesia with lidocaine1 % 3 ml for skin and subcu infiltration Condition: stable Complication: none. Description of the procedure= procedure risk and benefits discussed with the patient and her , consent signed. Patient placed in sitting position , back prepped with chlorhexidine 3 times been local infiltration of the skin and subcutaneous tissue with lidocaine 1% 3 mL for skin and subcu interstitial frustrations at L4 5 levels then 22-gauge Quincke-type needle advanced slowly at L4- 5 interlaminar space there was positive cerebrospinal fluid which was clear, no heme, no paresthesia ,total of 8 ML of clear cerebrospinal fluid collected in 4 different tubes 2mL in each, then the needle removed and a Band-Aid applied and patient tolerated the procedure well without any complications. Procedure done in the room 525
[2023-05-31 13:27] LABS: Appearance,CSF Clear; CSF Tube Number 4; Nucleated Cells, CSF 0 u/L (0-5); Red Blood Cell,CSF 7 u/L (0-10)
[2023-05-31] MEDS ORDERED: ACETAMINOPHEN TAB 325 MG TAB PO PRN (14:56)
--- NOTE | 2023-05-31 15:28 | P.PN ---
Subjective Progress Note Date: 05/31/23 This is a pleasant 32 year old female with medical history of daily tobacco use, anxiety, tubal ligation. Presents to the emergency room for altered mental status and confusion. Per the at the bedside patient seems forgetful and confused with onset of Thursday. He also reports patient has not been sleeping well and having increased thoughts of paranoia. She is also here for MRI which was scheduled as an outpatient. Patient was in the ER 4 days ago for symptoms of blurry vision and left arm weakness with accompanied headache. Patient also had episodes of vomiting at that time. Patient underwent EEG, Brain CT, CT angiography which were all negative for acute findings. Patient currently denies headache, dizziness or lightheadedness. Denies focal weakness. Denies chest pain, denies shortness of breath. No auditory or visual hallucinations reported. No family history of mental health disorders and no personal history with exception of anxiety. 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 Patient states this all started when she thought she missed a day of work but she didn't and then got confused. She was also worried about her health and vision changes and has been having increased anxiety. The states she seems stressed lately as she has been working alot more than usual. Patient has white count of 11.4, electrolytes are essentially unremarkable, Urine abnormal but not suggestive of an acute urinary tract infection. Urine drug tox showing barbiturates and benzodiazepines. Serum alcohol less than 10. Patient is admitted to the hospital and neurology, psychiatry have been consulted. 05/30/2023 Patient remains confused and alert x 1. Patient focused on her leaving the hospital. She is unable to get out a complete sentence. She is wandering the halls and hard to redirect. Patient was able to sit in a chair and brought back to her room. at bedside. Patient with no focal deficits. She is staring off in short spells and not responsive to her name when this happens. Concern for possible seizure like activity. Discussed with neurology. Patient had follow up EEG which was a normal routine EEG, no focal slowing, epileptiform discharge, or seizure on EEG. This does not rule out underlying epilepsy. Brain MRI showing no recent infarction, no abnormal enhancement. Mild nonspecific right-sided white matter changes. Altered vascular mechanics related to product of chronic migraine headaches in the broad differential. MR venography of the head shows no acute deep cerebral venous thrombosis. Seen in consult by psychiatry. 1:1 sitter discontinued. Patient started on naproxen for migraine, recommended to avoid topamax. Patient is being started on keppra prophylactically due to concern for seizure. 05/31/2023 Patient is evaluated today sitting up in bed. Alert x 3 less confused than yesterday. States she is trying to go back and remember what brought all this on. She is still not back to baseline. Neurology recommending LP and cervical MRI this will be completed. Ruling out demyelinating disease. ORIANA is negative. Patient took the trazadone for sleep last night states she had nightmares all night long. Review of Systems Constitutional: Denied any fatigue denied any fever. Cardio vascular: denied any chest pain, palpitations Gastrointestinal: denied any nausea, vomiting, diarrhea Pulmonary: Denied any shortness of breath cough Neurologic denied any new focal deficits All inpatient medications were reviewed and appropriate changes in these medications as dictated in the interval history and assessment and plan. PHYSICAL EXAMINATION: GENERAL: The patient is alert and oriented x3, not in any acute distress. Well d eveloped, well nourished. HEENT: Pupils are round and equally reacting to light. EOMI. No scleral icterus. No conjunctival pallor. Normocephalic, atraumatic. No pharyngeal erythema. No thyromegaly. CARDIOVASCULAR: S1 and S2 present. No murmurs, rubs, or gallops. PULMONARY: Chest is clear to auscultation, no wheezing or crackles. ABDOMEN: Soft, nontender, nondistended, normoactive bowel sounds. No palpable organomegaly. MUSCULOSKELETAL: No joint swelling or deformity. EXTREMITIES: No cyanosis, clubbing, or pedal edema. NEUROLOGICAL: Gross neurological examination did not reveal any focal deficits. Less confused today than yesterday. SKIN: No rashes. Assessment Altered mental status transient encephalopathy of unknown origin. Patient has postictal confusion. rule out seizure, demyelinating disease, and other viral etiologies. Chronic and ongoing nicotine use Migraine vs. chronic Family history of migraine and seizure. Anxiety Luekocytosis GI prophylaxis Full Code Plan LP puncture today and cervical MRI will be done tomorrow. Psychiatry and neurology following Patient is being started on keppra prophylactically also naproxen for headache. Neurology recommending Epilepsy monitoring unit/ outpatient prolonged EEG on discharge Patient is given trazadone for sleep. Patient is advised no driving, operating heavy machinery, avoid heights and also swimming alone for the next 6 months until seizure free. Patient to follow up with neurology outpatient in 1 to 2 weeks and to further discuss the restrictions and removing them if further work reveals there is truly no seizure likely activity. At this time this is unable to rule out. D/C home in the AM. The impression and plan of care has been dictated by Nurse Frances Beach as directed. Dr. Jamil MD I have performed a history and physical examination and medical decision making of this patient, discussed the same with the dictator, and agree with the dict ators assessment and plan as written, documented as a scribe. Based on total visit time, I have performed more than 50% of this visit. Objective - Vital Signs Vital signs: Vital Signs Temp 98.4 F 05/31/23 08:45 Pulse 88 05/31/23 08:45 Resp 16 05/31/23 08:45 BP 129/97 05/31/23 08:45 Pulse Ox 100 05/31/23 08:45 FiO2 Intake & Output 05/30/23 05/31/23 05/31/23 18:59 06:59 18:59 Intake Total 325 500 Balance 325 500 Intake: Intake, IV Titration 325 Amount Sodium Chloride 0.9% 1, 325 000 ml @ 75 mls/hr IV . [id number] [facility] Rx#:[id number] Oral 500 Other: Voiding Method Toilet # Voids 2 - Labs CBC & Chem 7: 05/28/23 20:16 05/28/23 20:16 Assessment and Plan Time with Patient: Less than 30
[2023-05-31] MEDS ORDERED: CAFFEINE-SODIUM BENZOATE 500 MG in SODIUM CHLORIDE 0.9% 1,000 ML IVPB ONE (15:35)
[2023-05-31] MEDS: BUTALB/APAP/CAFF 50-325-40MG TAB PO PRN (15:47)
[2023-05-31] MEDS: lisinopriL 5 MG TAB PO SCH (16:00)
[2023-05-31] MEDS: ONDANSETRON 4 MG/2 ML VIAL IVP PRN (16:15)
[2023-05-31] MEDS ORDERED: KETOROLAC 15 MG/ML 1 ML VIAL IVP PRN (17:20)
[2023-05-31] MEDS ORDERED: hydrALAZINE HCL 20 MG/ML 1 ML VIAL IVP PRN (17:22)
[2023-05-31] MEDS ORDERED: KETOROLAC 15 MG/ML 1 ML VIAL IVP SCH (18:00)
[2023-05-31] MEDS: traZODone HCL 50 MG TAB PO PRN (20:31)
[2023-05-31 23:11] LABS: ALT 11 U/L (8-44); AST 15 U/L (13-35); Albumin/Globulin Ratio 2.27 Ratio (1.60-3.17); Alkaline Phosphatase 73 U/L (41-126); Bilirubin, Conjugated <0.20 mg/dL (0.20-0.40); Bilirubin,Unconjugated >0.30 mg/dL (0.20-1.00); Globulin 2.2 d/dL (1.6-3.3); Total Bilirubin 0.5 mg/dL (0.3-1.2); Total Protein 7.2 d/dL (6.2-8.2)
[2023-06-01] MEDS: SODIUM CHLORIDE 0.9% 1,000 ML IV SCH ×2 (06:11→20:54)
[2023-06-01] MEDS: ONDANSETRON 4 MG/2 ML VIAL IVP PRN (09:22)
[2023-06-01] MEDS ORDERED: LORazepam 2 MG/ML INJ IV PRN (09:30)
--- NOTE | 2023-06-01 11:14 | MR ---
EXAMINATION TYPE: MR cervical spine wo/w con DATE OF EXAM: 06/01/2023 10:59 AM CLINICAL INDICATION:Female, 32 years old with history of Multiple sclerosis, Multiple sclerosis. COMPARISON: 05/30/2023 brain. TECHNIQUE: Multi planar, multi sequence imaging was performed utilizing: T1-weighted, T2-weighted, an d turbo inversion recovery imaging of the cervical spine. IV Contrast: 5.5 cc Gadavist FINDINGS: Alignment: The cervical vertebral bodies have preserved heights. Alignment is within normal limits gi holly patient positioning. Bones: Bone signal is within normal limits. No abnormal bone marrow edema on inversion recovery seque nces. Cord: The spinal cord is unremarkable with regards to their signal intensity and morphology. Discs: Intervertebral disc signal is maintained. C2-C3: No significant disc pathology. The spinal canal is patent. No neural foraminal stenosis. C3-C4: No significant disc pathology. The spinal canal is patent. No neural foraminal stenosis. C4-C5: No significant disc pathology. The spinal canal is patent. No neural foraminal stenosis. C5-C6: No significant disc pathology. The spinal canal is patent. Bilateral facet and uncovertebral joint arthropathy are present with mild bilateral neural foraminal stenosis. C6-C7: No significant disc pathology. The spinal canal is patent. No neural foraminal stenosis. C7-T1: No significant disc pathology. The spinal canal is patent. No neural foraminal stenosis. Other: Right thyroid nodule measuring 9 mm. IMPRESSION: 1. No evidence for disc herniation or significant spinal canal or neural foraminal stenosis. 2. Cord signal is maintained. No abnormal postcontrast enhancement.
[2023-06-01] MEDS: lisinopriL 5 MG TAB PO SCH (11:54)
[2023-06-01] MEDS: levETIRAcetam 500 MG TAB PO SCH ×2 (11:54→20:54)
[2023-06-01] MEDS: FAMOTIDINE 20 MG TAB PO SCH (11:54)
[2023-06-01 17:19] LABS: EBV-EA (IgG) <0.2 AI; EBV-EBNA(IgG) >8.0; EBV-VCA (IgG) >8.0 AI; EBV-VCA (IgM) 0.2 AI
[2023-06-01 17:35] LABS: HIV 2 AB Non-Reactive (Non-Reactive); HIV AB P24 Non-Reactive (Non-Reactive); HIV P24 AG Non-Reactive (Non-Reactive)
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
[2023-06-01] MEDS: busPIRone HCl 10 MG TAB PO PRN (20:54)
[2023-06-01] MEDS ORDERED: MELATONIN 3 MG TABLET PO SCH (21:45)
--- NOTE | 2023-06-01 21:50 | P.PN ---
Subjective Progress Note Date: 06/01/23 This is a pleasant 32 year old female with medical history of daily tobacco use, anxiety, tubal ligation. Presents to the emergency room for altered mental status and confusion. Per the at the bedside patient seems forgetful and confused with onset of Thursday. He also reports patient has not been sleeping well and having increased thoughts of paranoia. She is also here for MRI which was scheduled as an outpatient. Patient was in the ER 4 days ago for symptoms of blurry vision and left arm weakness with accompanied headache. Patient also had episodes of vomiting at that time. Patient underwent EEG, Brain CT, CT angiography which were all negative for acute findings. Patient currently denies headache, dizziness or lightheadedness. Denies focal weakness. Denies chest pain, denies shortness of breath. No auditory or visual hallucinations reported. No family history of mental health disorders and no personal history with exception of anxiety. 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 Patient states this all started when she thought she missed a day of work but she didn't and then got confused. She was also worried about her health and vision changes and has been having increased anxiety. The states she seems stressed lately as she has been working alot more than usual. Patient has white count of 11.4, electrolytes are essentially unremarkable, Urine abnormal but not suggestive of an acute urinary tract infection. Urine drug tox showing barbiturates and benzodiazepines. Serum alcohol less than 10. Patient is admitted to the hospital and neurology, psychiatry have been consulted. 05/30/2023 Patient remains confused and alert x 1. Patient focused on her leaving the hospital. She is unable to get out a complete sentence. She is wandering the halls and hard to redirect. Patient was able to sit in a chair and brought back to her room. at bedside. Patient with no focal deficits. She is staring off in short spells and not responsive to her name when this happens. Concern for possible seizure like activity. Discussed with neurology. Patient had follow up EEG which was a normal routine EEG, no focal slowing, epileptiform discharge, or seizure on EEG. This does not rule out underlying epilepsy. Brain MRI showing no recent infarction, no abnormal enhancement. Mild nonspecific right-sided white matter changes. Altered vascular mechanics related to product of chronic migraine headaches in the broad differential. MR venography of the head shows no acute deep cerebral venous thrombosis. Seen in consult by psychiatry. 1:1 sitter discontinued. Patient started on naproxen for migraine, recommended to avoid topamax. Patient is being started on keppra prophylactically due to concern for seizure. 05/31/2023 Patient is evaluated today sitting up in bed. Alert x 3 less confused than yesterday. States she is trying to go back and remember what brought all this on. She is still not back to baseline. Neurology recommending LP and cervical MRI this will be completed. Ruling out demyelinating disease. ORIANA is negative. Patient took the trazadone for sleep last night states she had nightmares all night long. 06/01/2023 Patient is evaluated today sitting up in bed patient has family at the bedside. Status post lumbar puncture did have headache after procedure given IV caffeine and naprosyn. Cervical spine MRI shows no evidence for disc herniation or significant spinal canal or neural foraminal stenosis. Cord signal is [place]. No abnormal postcontrast enhancement. CSF cell counts are normal. ORIANA negative. EBV IgG positive however IgM is negative indicating past infection. HIV negative. Trepenoma negative. Patient was tachycardic overnight heart rate in the 120s did state she had nightmares again after taking the trazadone does not want to take tonight. Review of Systems Constitutional: Denied any fatigue denied any fever. Cardio vascular: denied any chest pain, palpitations Gastrointestinal: denied any nausea, vomiting, diarrhea Pulmonary: Denied any shortness of breath cough Neurologic denied any new focal deficits All inpatient medications were reviewed and appropriate changes in these medications as dictated in the interval history and assessment and plan. PHYSICAL EXAMINATION: GENERAL: The patient is alert and oriented x3, not in any acute distress. Well developed, well nourished. HEENT: Pupils are round and equally reacting to light. EOMI. No scleral icterus. No conjunctival pallor. Normocephalic, atraumatic. No pharyngeal erythema. No thyromegaly. CARDIOVASCULAR: S1 and S2 present. No murmurs, rubs, or gallops. PULMONARY: Chest is clear to auscultation, no wheezing or crackles. ABDOMEN: Soft, nontender, nondistended, normoactive bowel sounds. No palpable organomegaly. MUSCULOSKELETAL: No joint swelling or deformity. EXTREMITIES: No cyanosis, clubbing, or pedal edema. NEUROLOGICAL: Gross neurological examination did not reveal any focal deficits. Less confused today than yesterday. SKIN: No rashes. Assessment Altered mental status transient encephalopathy of unknown origin. Patient has postictal confusion. rule out seizure, demyelinating disease, and other viral etiologies. Chronic and ongoing nicotine use Migraine vs. chronic Family history of migraine and seizure. Anxiety Luekocytosis GI prophylaxis Full Code Plan Psychiatry and neurology following Neurology recommending echocardiogram and bubble study Patient is being started on keppra prophylactically also naproxen for headache. Neurology recommending Epilepsy monitoring unit/ outpatient prolonged EEG on discharge Trazadone discontinued and melatonin started for sleep Patient is advised no driving, operating heavy machinery, avoid heights and also swimming alone for the next 6 months until seizure free. Patient to follow up with neurology outpatient in 1 to 2 weeks and to further discuss the res trictions and removing them if further work reveals there is truly no seizure likely activity. At this time this is unable to rule out. The impression and plan of care has been dictated by Gabriella Rios, Nurse Practitioner as directed. Dr. Jamil MD I have performed a history and physical examination and medical decision making of this patient, discussed the same with the dictator, and agree with the dictators assessment and plan as written, documented as a scribe. Based on total visit time, I have performed more than 50% of this visit. Objective - Vital Signs Vital signs: Vital Signs Temp 98.5 F 06/01/23 20:00 Pulse 92 06/01/23 20:00 Resp 16 06/01/23 20:00 BP 109/72 06/01/23 20:00 Pulse Ox 100 06/01/23 20:00 FiO2 Intake & Output 06/01/23 06/01/23 06/02/23 06:59 18:59 06:59 Other: Voiding Method Toilet Toilet # Voids 2 2 - Labs CBC & Chem 7: 05/28/23 20:16 05/28/23 20:16 Labs: Abnormal Lab Results - Last 24 Hours (Table) 05/31/23 05/31/23 Range/Units 12:30 12:30 Albumin 5.0 H (3.8-4.9) d/dL EBV Capsid Ag IgG Intrp Positive A (Negative) EBV Nuc Ag IgG Interp Positive A (Negative) Microbiology - Last 24 Hours (Table) 05/31/23 11:53 CSF Gram Stain - Preliminary Cerebral Spinal Fluid Assessment and Plan Time with Patient: Less than 30
[2023-06-02] MEDS: BUTALB/APAP/CAFF 50-325-40MG TAB PO PRN (06:08)
[2023-06-02 07:35] VITALS: BP 123/82; PULSE 53; RESP 16; TEMP 97.8
[2023-06-02] MEDS: FAMOTIDINE 20 MG TAB PO SCH (08:41)
[2023-06-02] MEDS: lisinopriL 5 MG TAB PO SCH (08:41)
[2023-06-02] MEDS: levETIRAcetam 500 MG TAB PO SCH (08:41)
[2023-06-02] MEDS: SODIUM CHLORIDE 0.9% 1,000 ML IV SCH (08:42)
[2023-06-02 10:46] LABS: VDRL, Qualitative CSF Nonreactive (Nonreactive)
--- NOTE | 2023-06-02 15:35 | CA ---
Transthoracic Echo Report Name: Marta Jack Age: 32 Gender: F : 1990 Exam Date: 06/02/2023 08:10 Exam Location: [facility] Ht (in): 64 Wt (lb): 120 Ordering Physician: Genet aCstillo MD Attending/Referring Phys: [employer] Scientist Gege Morris RDCS Procedure CPT: Indications: visual disturbance, blank stare, r/o TIA Cardiac Hx: Technical Quality: Fair Contrast 1: Agitated Saline Total Dose (mL): 8 Contrast 2: Total Dose (mL): MEASUREMENTS (Male / Female) Normal Values 2D ECHO LV Diastolic Diameter PLAX 4.1 cm 4.2 - 5.9 / 3.9 - 5.3 cm LV Systolic Diameter PLAX 2.9 cm IVS Diastolic Thickness 0.9 cm 0.6 - 1.0 / 0.6 - 0.9 cm LVPW Diastolic Thickness 1.0 cm 0.6 - 1.0 / 0.6 - 0.9 cm LV Relative Wall Thickness 0.5 RV Internal Dim ED PLAX 2.8 cm LA Volume 27.3 cm??? 18 - 58 / 22 - 52 cm??? M-MODE Aortic Root Diameter MM 3.0 cm LA Systolic Diameter MM 2.8 cm LA Ao Ratio MM 0.9 AV Cusp Separation MM 2.0 cm DOPPLER AV Peak Velocity 111.4 cm/s AV Peak Gradient 5.0 mmHg AV Mean Velocity 84.0 cm/s AV Mean Gradient 3.0 mmHg AV Velocity Time Integral 22.4 cm LVOT Peak Velocity 101.0 cm/s LVOT Peak Gradient 4.1 mmHg LVOT Velocity Time Integral 17.7 cm MV Area PHT 4.2 cm??? Mitral E Point Velocity 89.8 cm/s Mitral A Point Velocity 101.0 cm/s Mitral E to A Ratio 0.9 MV Deceleration Time 179.4 ms MV E' Velocity 8.1 cm/s Mitral E to MV E' Ratio 11.2 TR Peak Velocity 185.5 cm/s TR Peak Gradient 13.8 mmHg Right Ventricular Systolic Press 18.8 mmHg FINDINGS Left Ventricle Normal Left ventricular size, wall thickness, systolic function with no obvious regional wall motion abnormalities. Normal Left ventricular diastolic filling pattern. Left ventricular ejection fraction is estimated at 55-60 %. Right Ventricle Normal right ventricular size and function. Right ventricular systolic pressure within normal limits. Right Atrium Normal right atrial size. Negative agitated saline bubble study for right to left shunt. Left Atrium Normal left atrial size. Mitral Valve Structurally normal mitral valve. No mitral stenosis. Trace to mild mitral regurgitation. Aortic Valve Trileaflet aortic valve. No aortic valve stenosis or regurgitation. Tricuspid Valve Structurally normal tricuspid valve. Mild tricuspid regurgitation. Pulmonic Valve Trace pulmonic regurgitation. Pericardium No pericardial effusion. Aorta Normal size aortic root and proximal ascending aorta. CONCLUSIONS Left ventricular ejection fraction 55-60% Negative bubble study Mild tricuspid regurgitation RVSP 18 Previewed by: Dr. Devan Mckenzie DO (Electronically Signed) Final Date: 02 June 2023 15:34
== END 2023-06-02 11:42 | disposition home or self-care (01) | DRG 101 ==
LOC: EC 19:29 → 5NMEDONC 21:50
PROVIDERS: ADMIT Hospitalist; ATTEND Hospitalist
PROC: 009U3ZX Drainage of Spinal Canal, Percutaneous Approach, Diagnostic (ICD-10-PCS; principal; 2023-05-31)
DX: R56.9 Unspecified convulsions (principal); G93.40 Encephalopathy, unspecified; D72.829 Elevated white blood cell count, unspecified; F17.210 Nicotine dependence, cigarettes, uncomplicated; G43.109 Migraine with aura, not intractable, without status migrainosus; H53.9 Unspecified visual disturbance; F41.0 Panic disorder [episodic paroxysmal anxiety]; G47.8 Other sleep disorders; T43.215A Adverse effect of selective serotonin and norepinephrine reuptake inhibitors, initial encounter; Z79.899 Other long term (current) drug therapy
CPT/HCPCS: 36415; 70544; 70553; 72156; 80053; 80076; 80306; 80320; 81001; 81025; 82040; 82042; 82607; 82746; 82784; 82945; 83735; 83873; 83916; 84157; 85025; 85610; 85652; 85730; 86038; 86140; 86592; 86618; 86663; 86664; 86665; 86780; 87070; 87205; 87252; 87390; 87529; 89050; 93005; 93306; 95816; 96361; 96374; 99285

== ENCOUNTER → 2025-01-30 | Outpatient (CLI) | payer BC ==
--- NOTE | 2025-01-30 08:06 | US ---
EXAMINATION TYPE: US gallbladder DATE OF EXAM: 01/30/2025 COMPARISON: NONE CLINICAL INDICATION: Female, 34 years old with history of R10.12 LUQ PAIN K92.1 MELENA K29.70 GASTRIT IS; TECHNIQUE: Grayscale and color Doppler imaging of the right upper quadrant. FINDINGS: EXAM MEASUREMENTS: Liver Length: 14.4 cm Gallbladder Wall: 0.2 cm CBD: 0.6 cm, color Doppler imaging was utilized to isolate the common bile duct for measurement. Right Kidney: 10.0 x 5.0 x 5.5 cm PERSONAL SERVICE REPRESENTATIVE NOTES: Pancreas: wnl as best visualized Liver: no abnormalities seen Gallbladder: No stones seen Evidence for sonographic Cedeno's sign: No CBD: wnl Right Kidney: anechoic area seen:1.2x1.0x1.7cm consistent with simple small cyst. No follow-up neede d. IMPRESSION: No gallstones or sonographic evidence for acute cholecystitis. [facility], , 01/30/2025 8:04 AM
--- NOTE | 2025-01-30 10:57 | FL ---
EXAMINATION TYPE: FL UGI air wo esophagus wo KUB DATE OF EXAM: 01/30/2025 8:21 AM COMPARISON: None CLINICAL INDICATION:Female, 34 years old with history of R10.12 LUQ PAIN K92.1 MELENA K29.70 GASTRITI S; TECHNIQUE: The procedure was explained and patient history elicited. All patient questions were ans wered prior to start of procedure. A on air director radiograph of the abdomen was also reviewed. Multiple flu oroscopic spot images of the esophagus, stomach and duodenum were obtained following ingestion of liq uid barium and EZ-gas crystals. DAP: Not required due to machine [id number] FINDINGS: Upper GI examination: The on air director abdominal radiograph demonstrates a normal bowel gas pattern without dilated loops of small or large bowel. There is no evidence for organomegaly or pneumoperitoneum. No abnormal calcificat ions. The visualized osseous structures are intact. No evidence for reflux. IMPRESSION: Normal upper gastrointestinal examination. [facility], , 01/30/2025 10:55 AM
== END | disposition home or self-care (01) ==
LOC: RADUSWWP 06:56
PROVIDERS: ATTEND Family Medicine
DX: K92.1 Melena (principal); K29.70 Gastritis, unspecified, without bleeding; R19.4 Change in bowel habit
CPT/HCPCS: 74246; 76705

== ENCOUNTER → 2025-03-15 | Outpatient (CLI) | payer BC ==
--- NOTE | 2025-03-15 12:01 | CA ---
Transthoracic Echo Report Name: Marta Jack Age: 34 Gender: F : 1990 Exam Date: 03/15/2025 08:36 Exam Location: [facility] Ht (in): 60 Wt (lb): 135 Ordering Physician: Jimmie Tidwell MD Attending/Referring Phys: Yaw SNOW Milieu Counselor Sowmya Reed RDCS Procedure CPT: Indications: R06.02 SOB W/EXERTION R42 DIZZINESS R55 SYNCOPE Cardiac Hx: Technical Quality: Good Contrast 1: Total Dose (mL): Contrast 2: Total Dose (mL): MEASUREMENTS (Male / Female) Normal Values 2D ECHO LV Diastolic Diameter PLAX 4.3 cm 4.2 - 5.9 / 3.9 - 5.3 cm LV Systolic Diameter PLAX 3.1 cm IVS Diastolic Thickness 0.9 cm 0.6 - 1.0 / 0.6 - 0.9 cm LVPW Diastolic Thickness 0.9 cm 0.6 - 1.0 / 0.6 - 0.9 cm LV Relative Wall Thickness 0.4 RV Internal Dim ED PLAX 2.7 cm LA Systolic Diameter LX 3.2 cm 3.0 - 4.0 / 2.7 - 3.8 cm LV Diastolic Volume MOD 4C 58.3 cm??? LV Systolic Volume MOD 4C 27.3 cm??? LV Ejection Fraction MOD 4C 53.2 % LV Cardiac Index MOD 4C 1239.1 cm???/min???m??? LV Diastolic Length 4C 7.3 cm LV Systolic Length 4C 6.0 cm LV Diastolic Volume MOD 2C 73.8 cm??? LV Systolic Volume MOD 2C 29.2 cm??? LV Ejection Fraction MOD 2C 60.4 % LV Cardiac Index MOD 2C 1781.8 cm???/min???m??? LV Diastolic Length 2C 7.4 cm LV Systolic Length 2C 6.2 cm LA Volume 34.6 cm??? 18 - 58 / 22 - 52 cm??? LA Volume Index 21.2 cm???/m??? 16 - 28 cm???/m??? M-MODE Aortic Root Diameter MM 2.9 cm AV Cusp Separation MM 1.9 cm DOPPLER AV Peak Velocity 123.4 cm/s AV Peak Gradient 6.1 mmHg MV Area PHT 2.7 cm??? Mitral E Point Velocity 109.0 cm/s Mitral A Point Velocity 66.4 cm/s Mitral E to A Ratio 1.6 MV Deceleration Time 285.9 ms TR Peak Velocity 191.6 cm/s TR Peak Gradient 14.7 mmHg Right Ventricular Systolic Press 19.7 mmHg FINDINGS Left Ventricle Left ventricular ejection fraction is estimated at 60-65 %. Left ventricular cavity size normal. Left ventricular wall thickness normal. Normal left ventricular wall motion. Right Ventricle Normal right ventricular size. Right ventricular systolic pressure within normal limits. Right Atrium Normal right atrial size. No right atrial thrombus or mass seen. Left Atrium Normal left atrial size. No left atrial thrombus or mass present. Mitral Valve Structurally normal mitral valve. No evidence for mitral valve prolapse. No mitral stenosis. Mild mitral regurgitation. Aortic Valve Trileaflet aortic valve. No aortic valve stenosis or regurgitation. Tricuspid Valve Structurally normal tricuspid valve. Trace to mild tricuspid regurgitation. Pulmonic Valve Structurally normal pulmonic valve. Trace pulmonic regurgitation. Pericardium No pericardial effusion. Aorta Normal size aortic root and proximal ascending aorta. CONCLUSIONS Normal LV function Previewed by: Dr. Philip Tyler MD (Electronically Signed) Final Date: 15 March 2025 12:00
== END | disposition home or self-care (01) ==
LOC: RADECHMAIN 08:26
PROVIDERS: ATTEND Family Medicine
DX: R06.02 Shortness of breath (principal); R42 Dizziness and giddiness
CPT/HCPCS: 93306